=== PATIENT | female | born 2000 | race African-American/Black ===

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

== ENCOUNTER 2021-01-18 09:56 | Emergency (ER) | payer OTHER ==
--- OUTSIDE RECORDS SUMMARY | 2021-01-18 09:59 | XMS REPORT | Continuity of Care Document ---
:2000 Author Organization [facility] t Address [address] [place] [address] Care Team Providers Name Role Phone Unavailable Unavailable Unavailable Problems This patient has no known problems. Allergies, Adverse Reactions, Alerts Allergy Allergy Status Severity Reaction(s) Onset Inactive Treating Comm ents Source Name Type Date Date Clinician No Known DA Active U [facility] Drug 2 Allergie 00:00: s 00 Medications This patient has no known medications. Vital Signs Vital Name Observation Time Observation Value Comments Source 02 Sat by Pulse Oximetry 2020-08-30 16:49:36 100 /min Body Mass Index 2020-08-30 16:49:36 21.1 Height 2020-08-30 16:49:36 185.42\S\73 Pulse Rate 2020-08-30 16:49:36 70 /min Respiratory Rate 2020-08-30 16:49:36 17 /min Temperature 2020-08-30 16:49:36 37.0\S\98.6 Weight 2020-08-30 16:49:36 30096.779\S\2560 02 Sat by Pulse Oximetry 2020-08-30 16:24:28 100 /min Body Mass Index 2020-08-30 16:24:28 21.1 Height 2020-08-30 16:24:28 185.42\S\73 Pulse Rate 2020-08-30 16:24:28 70 /min Respiratory Rate 2020-08-30 16:24:28 17 /min Temperature 2020-08-30 16:24:28 37.0\S\98.6 Weight 2020-08-30 16:24:28 82190.779\S\2560 02 Sat by Pulse Oximetry 2020-08-30 16:23:57 100 /min Body Mass Index 2020-08-30 16:23:57 21.1 Height 2020-08-30 16:23:57 185.42\S\73 Pulse Rate 2020-08-30 16:23:57 70 /min Respiratory Rate 2020-08-30 16:23:57 17 /min Temperature 2020-08-30 16:23:57 37.0\S\98.6 Weight 2020-08-30 16:23:57 79580.779\S\2560 02 Sat by Pulse Oximetry 2020-08-30 16:23:26 100 /min Body Mass Index 2020-08-30 16:23:26 21.1 Height 2020-08-30 16:23:26 185.42\S\73 Pulse Rate 2020-08-30 16:23:26 70 /min Respiratory Rate 2020-08-30 16:23:26 17 /min Temperature 2020-08-30 16:23:26 37.0\S\98.6 Weight 2020-08-30 16:23:26 79940.779\S\2560 02 Sat by Pulse Oximetry 2020-08-30 16:02:24 100 /min Body Mass Index 2020-08-30 16:02:24 21.1 Height 2020-08-30 16:02:24 185.42\S\73 Pulse Rate 2020-08-30 16:02:24 76 /min Respiratory Rate 2020-08-30 16:02:24 20 /min Temperature 2020-08-30 16:02:24 97.6\S\207.7 Weight 2020-08-30 16:02:24 33494.779\S\2560 02 Sat by Pulse Oximetry 2020-08-30 15:57:47 100 /min Body Mass Index 2020-08-30 15:57:47 21.1 Height 2020-08-30 15:57:47 185.42\S\73 Pulse Rate 2020-08-30 15:57:47 76 /min Respiratory Rate 2020-08-30 15:57:47 20 /min Temperature 2020-08-30 15:57:47 97.6\S\207.7 Weight 2020-08-30 15:57:47 60414.779\S\2560 02 Sat by Pulse Oximetry 2020-08-30 15:01:57 100 /min Body Mass Index 2020-08-30 15:01:57 21.1 Height 2020-08-30 15:01:57 185.42\S\73 Pulse Rate 2020-08-30 15:01:57 68 /min Respiratory Rate 2020-08-30 15:01:57 18 /min Temperature 2020-08-30 15:01:57 36.5\S\97.7 Weight 2020-08-30 15:01:57 81736.779\S\2560 02 Sat by Pulse Oximetry 2020-08-30 13:45:28 100 /min Body Mass Index 2020-08-30 13:45:28 21.1 Height 2020-08-30 13:45:28 185.42\S\73 Pulse Rate 2020-08-30 13:45:28 68 /min Respiratory Rate 2020-08-30 13:45:28 18 /min Temperature 2020-08-30 13:45:28 36.5\S\97.7 Weight 2020-08-30 13:45:28 32064.779\S\2560 Height 2020-08-30 13:33:11 185.42\S\73 Pulse Rate 2020-08-30 13:33:11 68 /min Respiratory Rate 2020-08-30 13:33:11 18 /min Temperature 2020-08-30 13:33:11 36.5\S\97.7 Weight 2020-08-30 13:33:11 46899.779\S\2560 02 Sat by Pulse Oximetry 2020-08-30 13:33:10 100 /min Body Mass Index 2020-08-30 13:33:10 21.1 02 Sat by Pulse Oximetry 2020-08-30 12:18:45 100 /min Body Mass Index 2020-08-30 12:18:45 21.1 Height 2020-08-30 12:18:45 185.42\S\73 Pulse Rate 2020-08-30 12:18:45 68 /min Respiratory Rate 2020-08-30 12:18:45 18 /min Temperature 2020-08-30 12:18:45 36.5\S\97.7 Weight 2020-08-30 12:18:45 73993.779\S\2560 02 Sat by Pulse Oximetry 2020-08-30 11:29:51 100 /min Body Mass Index 2020-08-30 11:29:51 21.1 Height 2020-08-30 11:29:51 185.42\S\73 Pulse Rate 2020-08-30 11:29:51 68 /min Respiratory Rate 2020-08-30 11:29:51 18 /min Temperature 2020-08-30 11:29:51 36.5\S\97.7 Weight 2020-08-30 11:29:51 24280.779\S\2560 02 Sat by Pulse Oximetry 2020-08-30 11:15:27 100 /min Body Mass Index 2020-08-30 11:15:27 21.1 Height 2020-08-30 11:15:27 185.42\S\73 Pulse Rate 2020-08-30 11:15:27 68 /min Respiratory Rate 2020-08-30 11:15:27 18 /min Temperature 2020-08-30 11:15:27 36.5\S\97.7 Weight 2020-08-30 11:15:27 28904.779\S\2560 02 Sat by Pulse Oximetry 2020-08-30 11:13:55 100 /min Body Mass Index 2020-08-30 11:13:55 21.1 Height 2020-08-30 11:13:55 185.42\S\73 Pulse Rate 2020-08-30 11:13:55 68 /min Respiratory Rate 2020-08-30 11:13:55 18 /min Temperature 2020-08-30 11:13:55 36.5\S\97.7 Weight 2020-08-30 11:13:55 93455.779\S\2560 02 Sat by Pulse Oximetry 2020-08-30 11:09:18 100 /min Body Mass Index 2020-08-30 11:09:18 21.1 Height 2020-08-30 11:09:18 185.42\S\73 Pulse Rate 2020-08-30 11:09:18 68 /min Respiratory Rate 2020-08-30 11:09:18 18 /min Temperature 2020-08-30 11:09:18 36.5\S\97.7 Weight 2020-08-30 11:09:18 43029.779\S\2560 02 Sat by Pulse Oximetry 2020-08-30 11:07:46 100 /min Body Mass Index 2020-08-30 11:07:46 21.1 Height 2020-08-30 11:07:46 185.42\S\73 Pulse Rate 2020-08-30 11:07:46 68 /min Respiratory Rate 2020-08-30 11:07:46 18 /min Temperature 2020-08-30 11:07:46 36.5\S\97.7 Weight 2020-08-30 11:07:46 27738.779\S\2560 02 Sat by Pulse Oximetry 2020-08-30 11:06:45 100 /min Body Mass Index 2020-08-30 11:06:45 21.1 Height 2020-08-30 11:06:45 185.42\S\73 Pulse Rate 2020-08-30 11:06:45 68 /min Respiratory Rate 2020-08-30 11:06:45 18 /min Temperature 2020-08-30 11:06:45 36.5\S\97.7 Weight 2020-08-30 11:06:45 96414.779\S\2560 02 Sat by Pulse Oximetry 2020-08-30 11:06:14 100 /min Body Mass Index 2020-08-30 11:06:14 21.1 Height 2020-08-30 11:06:14 185.42\S\73 Pulse Rate 2020-08-30 11:06:14 68 /min Respiratory Rate 2020-08-30 11:06:14 18 /min Temperature 2020-08-30 11:06:14 36.5\S\97.7 Weight 2020-08-30 11:06:14 58544.779\S\2560 02 Sat by Pulse Oximetry 2020-08-30 11:04:10 100 /min Body Mass Index 2020-08-30 11:04:10 21.1 Height 2020-08-30 11:04:10 185.42\S\73 Pulse Rate 2020-08-30 11:04:10 68 /min Respiratory Rate 2020-08-30 11:04:10 18 /min Temperature 2020-08-30 11:04:10 36.5\S\97.7 Weight 2020-08-30 11:04:10 19886.779\S\2560 WEIGHT 2020-08-30 11:01:00 72.401012 kg HEIGHT 2020-08-30 11:01:00 185.42 cm Procedures This patient has no known procedures. Results This patient has no known results.
[2021-01-18 10:59] LABS: Urine Blood 1+ (Negative); Urine Glucose Negative (Negative); Urine Protein 1+ (Negative); Urine Specific Gravity >=1.030 (1.005-1.030); Urine pH 6.5 (5.0-7.0)
[2021-01-18] MEDS ORDERED: NA CHLORIDE 0.9% 1,000 ML ONE (11:47)
[2021-01-18] MEDS ORDERED: FAMOTIDINE 20 MG/2 ML VIAL IV ONE (11:48)
[2021-01-18 11:54] LABS: Absolute Lymphocytes (CBC) 1.5 K/uL (0.7-4.9); Basophils % 0.7 % (0-1.3); Hematocrit 38.6 % (36.0-45.0); Lymphocytes % 35.1 % (15.3-44.8); MPV 8.7 fL (7.6-11.3); RBC Red Blood Cell Count 4.22 M/uL (3.86-4.86)
--- NOTE | 2021-01-18 12:10 | RAD REPORT ---
EXAM DESCRIPTION: CT - Abdomen Pelvis W Contrast - 01/18/2021 11:56 am CLINICAL HISTORY: Upper abd;Abd pain COMPARISON: <Comparisons> TECHNIQUE: Biphasic, helical CT imaging of the abdomen and pelvis was performed following 100 ml non -ionic IV contrast. No oral contrast administered. All CT scans are performed using dose optimization technique as appropriate and may include automated exposure control or mA/KV adjustment according to patient size. FINDINGS: No suspicious findings in the lung bases. The liver, spleen, and pancreas show no suspicious findings. Gallbladder and biliary tree are also wi thout suspicious finding. Symmetric renal function is seen with no hydronephrosis or suspicious renal mass. No pyelonephritis o r acute parenchymal process. No bladder abnormalities. No adrenal abnormalities. Right deviated uterus shows no abnormality. No right ovarian abnormality seen. Left ovary appears to contain a 2.4 centimeter partially involuted cyst. Physiologic quantity of free fluid is seen adjacen t to the ovary and in the cul de sac. These findings are not likely significant given the history of left upper pain. No dilated bowel loops or bowel wall thickening. No appendicitis findings. Patient has moderate stool volume filling but not dilating the colon. No colon wall thickening or mass. No free air, pneumatosi s or abnormal free fluid collection. No focal inflammatory stranding seen. No hernia, mass or bulky lymphadenopathy. No suspicious bony findings. IMPRESSION: Contrast enhanced CT abdomen and pelvis showing no acute or emergent finding. Patient has a partially collapsed or involuting left ovarian cyst approximately 2.4 cm in size with a djacent free fluid. This is not outside normal range and is probably not relevant for a patient with provided history of left upper abdominal pain. Stool volume is seen filling but not dilating the colon.
[2021-01-18 12:53] LABS: Albumin 3.6 g/dL (3.4-5.0); Bilirubin Direct 0.1 mg/dL (0-0.2); Bilirubin Total 0.4 mg/dL (0.2-1.0); Potassium 4.2 mmol/L (3.5-5.1); Protein, Total 8.4 g/dL (6.4-8.2)
--- NOTE | 2021-01-18 12:57 | ER ---
Nurse's Notes [facility] [place] Name: Trisha Carreon Age: 20 yrs Sex: Female : 2000 Arrival Date: 01/18/2021 Time: 09:58 Bed 13 Private MD: Diagnosis: Lower abdominal pain, unspecified;Other and unspecified ovarian cysts Presentation: 01/18 10:24 Chief complaint: Patient states: Epigastric, BELLAMY and sore throat x 1.5 weeks, denies jl7 fever, denies N/V/D. Coronavirus screen: Client denies travel out of the [place] in the last 14 days. headache, sore throat, Client presents with at least one sign or symptom that may indicate coronavirus-19. Standard/surgical mask placed on the client. Provider contacted for isolation considerations. Ebola Screen: No symptoms or risks identified at this time. Initial Sepsis Screen: Does the patient meet any 2 criteria? No. Patient's initial sepsis screen is negative. Does the patient have a suspected source of infection? No. Patient's initial sepsis screen is negative. Risk Assessment: Do you want to hurt yourself or someone else? Patient reports no desire to harm self or others. Onset of symptoms was January 09, 2021. 10:24 Method Of Arrival: Ambulatory 7 10:24 Acuity: ROSSY 3 jl7 Triage Assessment: 10:27 General: Appears in no apparent distress. uncomfortable, Behavior is calm, cooperative. jl7 Pain: Complains of pain in bellamy, epigastric pain Pain currently is 9 out of 10 on a pain scale. GI: Patient currently denies diarrhea, nausea, vomiting. 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 - Social history:: Smoking status: Patient denies any tobacco usage or history of. Screenin:38 Abuse screen: Denies threats or abuse. Nutritional screening: No deficits noted. ap3 Tuberculosis screening: No symptoms or risk factors identified. Fall Risk None identified. Assessment: 10:36 General: Appears comfortable, Behavior is calm, cooperative, drowsy. Pain: Complains of ap3 pain in abdomen Pain does not radiate. Pain currently is 9 out of 10 on a pain scale. Pain began gradually, 2 weeks ago Also complains of headach. Neuro: Level of Consciousness is awake, alert, obeys commands, Oriented to person, place, time, situation, Appropriate for age Moves all extremities. Gait is steady, Speech is normal, Facial symmetry appears normal, Reports headache since 2 weeks ago Denies dizziness. Cardiovascular: Capillary refill < 3 seconds. Respiratory: Airway is patent Respiratory effort is even, unlabored, Respiratory pattern is regular, symmetrical. Respiratory: Reports cough that is dry, Denies shortness of breath. GI: Bowel sounds present X 4 quads. Abd is soft and non tender X 4 quads. : No signs and/or symptoms were reported regarding the genitourinary system. EENT: No signs and/or symptoms were reported regarding the EENT system. Denies nasal congestion, nasal discharge. Derm: No signs and/or symptoms reported regarding the dermatologic system. 10:38 Reassessment: patient provided with specimen cup and education in providing clean catch ap3 urine. patient verbalized understanding. Vital Signs: 10:27 BP 107 / 77; Pulse 87; Resp 19; Temp 99; Pulse Ox 100% ; Pain 9/10; jl7 11:31 BP 112 / 79; Pulse 69; Resp 17; Pulse Ox 100% on R/A; Pain 0/10; ap3 12:35 BP 110 / 73 RA Sitting (auto/reg); Pulse 74; Resp 18; Pulse Ox 100% on R/A; Pain 3/10; ap3 ED Course: 09:58 Patient arrived in ED. as 10:07 Emmanuel Guerrero MD is Attending Physician. kdr 10:27 Triage completed. jl7 10:27 Arm band placed on right wrist. jl7 10:35 Luci Donato, AIDEN is Primary Nurse. ap3 10:38 Patient has correct armband on for positive identification. Bed in low position. Call ap3 light in reach. Side rails up X2. Pulse ox on. NIBP on. Door closed. Noise minimized. 11:30 Inserted saline lock: 20 gauge in right antecubital area, using aseptic technique. ap3 Blood collected. successfully inserted by student nurse. 11:[address] via wheelchair. ap3 11:56 CT Abd/Pelvis - IV Contrast Only In Process Unspecified. EDMS 12:35 Pt visited by Friend. ap3 12:57 No provider procedures requiring assistance completed. ap3 12:59 ED physician to see patient. ap3 13:09 IV discontinued, intact, bleeding controlled, No redness/swelling at site. Pressure ap3 dressing applied. Administered Medications: 12:07 Drug: NS 0.9% 500 ml Route: IV; Rate: bolus; Site: right antecubital; ap3 13:10 Follow up: IV Status: Completed infusion; IV Intake: 1000ml ap3 12:07 Drug: Pepcid (famotidine) 20 mg Route: IVP; Site: right antecubital; ap3 13:10 Follow up: Response: No adverse reaction ap3 Intake: 13:10 IV: 1000ml; Total: 1000ml. ap3 Outcome: 12:56 Discharge ordered by . kdr 13:09 Discharged to home ambulatory, with family. ap3 13:09 Condition: good 13:09 Discharge instructions given to patient, family, Instructed on discharge instructions, follow up and referral plans. medication usage, Demonstrated understanding of instructions, follow-up care, medications, Prescriptions given X 1. 13:09 Patient left the ED. ap3 Signatures: Dispatcher [employer] EDMS Emmanuel Guerrero MD MD kdr Martinez, Amelia as Leal, Jahala, RN RN jl7 Luci Donato RN RN ap3
--- NOTE | 2021-01-18 12:57 | EDPHYS ---
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 - Social history:: Smoking status: Patient denies any tobacco usage or history of. Vital Signs: 10:27 BP 107 / 77; Pulse 87; Resp 19; Temp 99; Pulse Ox 100% ; Pain 9/10; jl7 11:31 BP 112 / 79; Pulse 69; Resp 17; Pulse Ox 100% on R/A; Pain 0/10; ap3 12:35 BP 110 / 73 RA Sitting (auto/reg); Pulse 74; Resp 18; Pulse Ox 100% on R/A; Pain 3/10; ap3 MDM: 12:56 Patient medically screened. [facility] 01/18 10:59 Order name: Urine Dipstick-Ancillary; Complete Time: 12:55 [facility] 01/18 11:21 Order name: Basic Metabolic Panel; Complete Time: 12:55 [facility] 01/18 11:21 Order name: CBC with Diff; Complete Time: 12:55 [facility] 01/18 11:21 Order name: Hepatic Function; Complete Time: 12:55 [facility] 01/18 11:21 Order name: Lipase; Complete Time: 12:55 [facility] 01/18 12:39 Order name: CREATININE WHOLE BLOOD; Complete Time: 12:55 [facility] 01/18 11:21 Order name: IV Saline Lock; Complete Time: 11:46 [facility] 01/18 11:21 Order name: Labs collected and sent; Complete Time: 11:46 [facility] 01/18 11:21 Order name: CT Abd/Pelvis - IV Contrast Only; Complete Time: 12:55 kdr Administered Medications: 12:07 Drug: NS 0.9% 500 ml Route: IV; Rate: bolus; Site: right antecubital; ap3 13:10 Follow up: IV Status: Completed infusion; IV Intake: 1000ml ap3 12:07 Drug: Pepcid (famotidine) 20 mg Route: IVP; Site: right antecubital; ap3 13:10 Follow up: Response: No adverse reaction ap3 Disposition Summary: 01/18/21 12:56 Discharge Ordered Location: Home kdr Problem: new kdr Symptoms: have improved kdr Condition: Stable kdr Diagnosis - Lower abdominal pain, unspecified kdr - Other and unspecified ovarian cysts kdr Followup: kdr - With: Private Physician - When: 2 - 3 days - Reason: If symptoms return, Further diagnostic work-up, Recheck today's complaints, Continuance of care, Re-evaluation by your physician Discharge Instructions: - Discharge Summary Sheet kdr - Abdominal Pain, Adult kdr - Ovarian Cyst, [id number] kdr Forms: - Medication Reconciliation Form kdr - Thank You Letter kdr - Work release form ap3 Prescriptions: - Ibuprofen 600 mg Oral Tablet - take 1 tablet by ORAL route every 6 hours As needed take with food; 30 tablet; kdr Refills: 0, Product Selection Permitted Signatures: Dispatcher [employer] Emmanuel Flores MD MD kdr Guille Kilpatrick RN RN jl7 Luci Donato RN RN ap3
[2021-01-18 13:16] VITALS: TEMP 99; O2SAT 100
[2021-01-18 13:20] VITALS: BP 110/73
== END 2021-01-18 13:09 | disposition home or self-care (01) ==
LOC: ER 09:56
DX: N83.299 Other ovarian cyst, unspecified side (principal)
CPT/HCPCS: 96361; 85025; 80048; 36415; 82565; 80076; 81003; 83690; 74177; 96374; 99284; Q9967; J7030

== ENCOUNTER 2022-01-06 20:51 | Emergency (ER) | payer OTHER ==
[2022-01-06] MEDS ORDERED: LORAZEPAM 1 MG TABLET ONE (21:44)
--- NOTE | 2022-01-06 22:18 | ER ---
Nurse's Notes [facility] Name: Trisha Carreon Age: 21 yrs Sex: Female : 2000 Arrival Date: 01/06/2022 Time: 20:54 Bed 17 Private MD: Diagnosis: Anxiety disorder, unspecified Presentation: 01/06 21:09 Chief complaint: Patient states: "Anxiety attack." Parent and/or Guardian states: "They tw5 usually last her about 30 min to an hour.". Coronavirus screen: Vaccine status: Patient reports receiving the 2nd dose of the covid vaccine. [employer]. Ebola Screen: Patient negative for fever greater than or equal to 101.5 degrees Fahrenheit, and additional compatible Ebola Virus Disease symptoms Patient denies exposure to infectious person. Patient denies travel to an Ebola-affected area in the 21 days before illness onset. Initial Sepsis Screen: Does the patient meet any 2 criteria? No. Patient's initial sepsis screen is negative. Does the patient have a suspected source of infection? No. Patient's initial sepsis screen is negative. Risk Assessment: Do you want to hurt yourself or someone else? Patient reports no desire to harm self or others. Onset of symptoms was January 06, 2022 at 19:00. 21:09 Method Of Arrival: Ambulatory tw5 21:09 Acuity: ROSSY 4 tw5 Triage Assessment: 21:11 General: Appears uncomfortable, obese, Behavior is cooperative, appropriate for age, tw5 anxious. Pain: Denies pain. 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 - Social history:: Smoking status: Patient reports the use of cigarette tobacco products, smokes one pack cigarettes per day. Vital Signs: 21:09 BP 122 / 93; Pulse 78; Resp 14; Temp 98.1; Pulse Ox 94% on R/A; Weight 104.33 kg; tw5 Height 6 ft. 0 in. (182.88 cm); Pain 0/10; 21:09 Body Mass Index 31.19 (104.33 kg, 182.88 cm) tw5 ED Course: 20:54 Patient arrived in ED. am2 21:11 Triage completed. tw5 21:11 Arm band placed on. 5 21:18 Lenny Hoffman PA is PHCP. [facility] 21:18 David Flowers MD is Attending Physician. [facility] 21:19 Rao Vizcaino, RN is Primary Nurse. 3 21:23 Patient has correct armband on for positive identification. Bed in low position. Call [facility] light in reach. Side rails up X 1. Adult w/ patient. Pulse ox on. NIBP on. Administered Medications: 21:43 Drug: Ativan (LORazepam) 1 mg Route: PO; ll3 Outcome: 22:18 Discharge ordered by . [facility] 23:04 Patient left the ED. tw5 Signatures: Lenny Hoffman PA PA jmm Martinez, Maria 5 Luci Haddad am2 Alexandra Johnson 5 Rao Vizcaino, RN RN 3
--- NOTE | 2022-01-06 22:18 | EDPHYS ---
Physician Documentation [facility] Name: Trisha Carreon Age: 21 yrs Sex: Female : 2000 Arrival Date: 01/06/2022 Time: 20:54 Bed 17 Private MD: ED Physician David Flowers HPI: 01/06 22:16 This 21 yrs old Black Female presents to ER via Ambulatory with complaints of Psych jmm Problem. 22:16 The patient presents to the emergency department with anxiety. Onset: The jmm symptoms/episode began/occurred acutely, today. Associated signs and symptoms: Pertinent negatives: abdominal pain, homicidal ideation, substance abuse, suicide ideation. The patient has experienced similar episodes in the past. 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 - Social history:: Smoking status: Patient reports the use of cigarette tobacco products, smokes one pack cigarettes per day. ROS: 22:16 Constitutional: Negative for fever, chills, and weight loss, Cardiovascular: Negative jmm for chest pain, palpitations, and edema, Respiratory: Negative for shortness of breath, cough, wheezing, and pleuritic chest pain. 22:16 Psych: Positive for anxiety. 22:16 All other systems are negative. Exam: 22:16 Constitutional: This is a well developed, well nourished patient who is awake, alert, jmm and in no acute distress. Head/Face: atraumatic. Eyes: EOMI, no conjunctival erythema appreciated ENT: Moist Mucus Membranes Neck: Trachea midline, Supple Chest/axilla: Normal chest wall appearance and motion. Cardiovascular: Regular rate and rhythm. No edema appreciated Respiratory: Normal respirations, no respiratory distress appreciated Abdomen/GI: Non distended Back: Normal ROM Skin: General appearance color normal MS/ Extremity: Moves all extremities, no obvious deformities appreciated, no edema noted to the lower extremities Neuro: Awake and alert 22:16 Psych: Behavior/mood is pleasant, cooperative, anxious, Patient has no thoughts/intents to harm self or others. Vital Signs: 21:09 BP 122 / 93; Pulse 78; Resp 14; Temp 98.1; Pulse Ox 94% on R/A; Weight 104.33 kg; tw5 Height 6 ft. 0 in. (182.88 cm); Pain 0/10; 21:09 Body Mass Index 31.19 (104.33 kg, 182.88 cm) tw5 MDM: 21:20 Patient medically screened. [facility] 22:16 Data reviewed: vital signs, nurses notes. Counseling: I had a detailed discussion with collette the patient and/or guardian regarding: the historical points, exam findings, and any diagnostic results supporting the discharge/admit diagnosis, the need for outpatient follow up, to return to the emergency department if symptoms worsen or persist or if there are any questions or concerns that arise at home. Administered Medications: 21:43 Drug: Ativan (LORazepam) 1 mg Route: PO; ll3 Disposition Summary: 01/06/22 22:18 Discharge Ordered Location: Home [facility] Condition: Stable [facility] Diagnosis - Anxiety disorder, unspecified [facility] Followup: [facility] - With: Private Physician - When: 2 - 3 days - Reason: Recheck today's complaints, Continuance of care, Re-evaluation by your physician Discharge Instructions: - Discharge Summary Sheet [facility] - Panic Attack [facility] Forms: - Medication Reconciliation Form [facility] - Thank You Letter [facility] - Antibiotic Education [facility] - Prescription Opioid Use [facility] Prescriptions: - Hydroxyzine HCl 25 mg Oral Tablet - take 1 tablet by ORAL route every 6 hours As needed; 30 tablet; Refills: 0, [facility] Product Selection Permitted Signatures: David Flowers MD MD cha Mickail, Joel, PA PA jmm Wood, Tiffany tw5 Rao Vizcaino RN RN ll3
[2022-01-06 23:15] VITALS: BP 122/93; TEMP 98.1; O2SAT 94
== END 2022-01-06 23:04 | disposition home or self-care (01) ==
LOC: ER 20:51
DX: F41.9 Anxiety disorder, unspecified (principal); F90.9 Attention-deficit hyperactivity disorder, unspecified type; F17.210 Nicotine dependence, cigarettes, uncomplicated
CPT/HCPCS: 99283

== ENCOUNTER 2022-11-14 08:54 | Emergency (ER) | payer OTHER ==
--- OUTSIDE RECORDS SUMMARY | 2022-11-14 08:58 | XMS REPORT | Continuity of Care Document ---
:2000 Author Organization [facility] t Address [address] [place] [address] Care Team Providers Name Role Phone Unavailable Unavailable Unavailable Payers Payer Name Policy Type Policy Number Effective Date Expiration Date S ource Problems This patient has no known problems. Allergies, Adverse Reactions, Alerts Allergy Allergy Status Severity Reaction(s) Onset Inactive Treating Comm ents Source Name Type Date Date Clinician No Known DA Active U [facility] Drug 08-30 Allergie 00:00: s 00 Medications This patient has no known medications. Vital Signs Vital Name Observation Time Observation Value Comments Source 02 Sat by Pulse Oximetry 2020-08-30 16:49:36 100 /min Body Mass Index 2020-08-30 16:49:36 21.1 Height 2020-08-30 16:49:36 185.42\S\73 Pulse Rate 2020-08-30 16:49:36 70 /min Respiratory Rate 2020-08-30 16:49:36 17 /min Temperature 2020-08-30 16:49:36 37.0\S\98.6 Weight 2020-08-30 16:49:36 17491.779\S\2560 02 Sat by Pulse Oximetry 2020-08-30 16:24:28 100 /min Body Mass Index 2020-08-30 16:24:28 21.1 Height 2020-08-30 16:24:28 185.42\S\73 Pulse Rate 2020-08-30 16:24:28 70 /min Respiratory Rate 2020-08-30 16:24:28 17 /min Temperature 2020-08-30 16:24:28 37.0\S\98.6 Weight 2020-08-30 16:24:28 40493.779\S\2560 02 Sat by Pulse Oximetry 2020-08-30 16:23:57 100 /min Body Mass Index 2020-08-30 16:23:57 21.1 Height 2020-08-30 16:23:57 185.42\S\73 Pulse Rate 2020-08-30 16:23:57 70 /min Respiratory Rate 2020-08-30 16:23:57 17 /min Temperature 2020-08-30 16:23:57 37.0\S\98.6 Weight 2020-08-30 16:23:57 01573.779\S\2560 02 Sat by Pulse Oximetry 2020-08-30 16:23:26 100 /min Body Mass Index 2020-08-30 16:23:26 21.1 Height 2020-08-30 16:23:26 185.42\S\73 Pulse Rate 2020-08-30 16:23:26 70 /min Respiratory Rate 2020-08-30 16:23:26 17 /min Temperature 2020-08-30 16:23:26 37.0\S\98.6 Weight 2020-08-30 16:23:26 67189.779\S\2560 02 Sat by Pulse Oximetry 2020-08-30 16:02:24 100 /min Body Mass Index 2020-08-30 16:02:24 21.1 Height 2020-08-30 16:02:24 185.42\S\73 Pulse Rate 2020-08-30 16:02:24 76 /min Respiratory Rate 2020-08-30 16:02:24 20 /min Temperature 2020-08-30 16:02:24 97.6\S\207.7 Weight 2020-08-30 16:02:24 84404.779\S\2560 02 Sat by Pulse Oximetry 2020-08-30 15:57:47 100 /min Body Mass Index 2020-08-30 15:57:47 21.1 Height 2020-08-30 15:57:47 185.42\S\73 Pulse Rate 2020-08-30 15:57:47 76 /min Respiratory Rate 2020-08-30 15:57:47 20 /min Temperature 2020-08-30 15:57:47 97.6\S\207.7 Weight 2020-08-30 15:57:47 36782.779\S\2560 02 Sat by Pulse Oximetry 2020-08-30 15:01:57 100 /min Body Mass Index 2020-08-30 15:01:57 21.1 Height 2020-08-30 15:01:57 185.42\S\73 Pulse Rate 2020-08-30 15:01:57 68 /min Respiratory Rate 2020-08-30 15:01:57 18 /min Temperature 2020-08-30 15:01:57 36.5\S\97.7 Weight 2020-08-30 15:01:57 65940.779\S\2560 02 Sat by Pulse Oximetry 2020-08-30 13:45:28 100 /min Body Mass Index 2020-08-30 13:45:28 21.1 Height 2020-08-30 13:45:28 185.42\S\73 Pulse Rate 2020-08-30 13:45:28 68 /min Respiratory Rate 2020-08-30 13:45:28 18 /min Temperature 2020-08-30 13:45:28 36.5\S\97.7 Weight 2020-08-30 13:45:28 08214.779\S\2560 Height 2020-08-30 13:33:11 185.42\S\73 Pulse Rate 2020-08-30 13:33:11 68 /min Respiratory Rate 2020-08-30 13:33:11 18 /min Temperature 2020-08-30 13:33:11 36.5\S\97.7 Weight 2020-08-30 13:33:11 84131.779\S\2560 02 Sat by Pulse Oximetry 2020-08-30 13:33:10 100 /min Body Mass Index 2020-08-30 13:33:10 21.1 02 Sat by Pulse Oximetry 2020-08-30 12:18:45 100 /min Body Mass Index 2020-08-30 12:18:45 21.1 Height 2020-08-30 12:18:45 185.42\S\73 Pulse Rate 2020-08-30 12:18:45 68 /min Respiratory Rate 2020-08-30 12:18:45 18 /min Temperature 2020-08-30 12:18:45 36.5\S\97.7 Weight 2020-08-30 12:18:45 49715.779\S\2560 02 Sat by Pulse Oximetry 2020-08-30 11:29:51 100 /min Body Mass Index 2020-08-30 11:29:51 21.1 Height 2020-08-30 11:29:51 185.42\S\73 Pulse Rate 2020-08-30 11:29:51 68 /min Respiratory Rate 2020-08-30 11:29:51 18 /min Temperature 2020-08-30 11:29:51 36.5\S\97.7 Weight 2020-08-30 11:29:51 63613.779\S\2560 02 Sat by Pulse Oximetry 2020-08-30 11:15:27 100 /min Body Mass Index 2020-08-30 11:15:27 21.1 Height 2020-08-30 11:15:27 185.42\S\73 Pulse Rate 2020-08-30 11:15:27 68 /min Respiratory Rate 2020-08-30 11:15:27 18 /min Temperature 2020-08-30 11:15:27 36.5\S\97.7 Weight 2020-08-30 11:15:27 20294.779\S\2560 02 Sat by Pulse Oximetry 2020-08-30 11:13:55 100 /min Body Mass Index 2020-08-30 11:13:55 21.1 Height 2020-08-30 11:13:55 185.42\S\73 Pulse Rate 2020-08-30 11:13:55 68 /min Respiratory Rate 2020-08-30 11:13:55 18 /min Temperature 2020-08-30 11:13:55 36.5\S\97.7 Weight 2020-08-30 11:13:55 38373.779\S\2560 02 Sat by Pulse Oximetry 2020-08-30 11:09:18 100 /min Body Mass Index 2020-08-30 11:09:18 21.1 Height 2020-08-30 11:09:18 185.42\S\73 Pulse Rate 2020-08-30 11:09:18 68 /min Respiratory Rate 2020-08-30 11:09:18 18 /min Temperature 2020-08-30 11:09:18 36.5\S\97.7 Weight 2020-08-30 11:09:18 86330.779\S\2560 02 Sat by Pulse Oximetry 2020-08-30 11:07:46 100 /min Body Mass Index 2020-08-30 11:07:46 21.1 Height 2020-08-30 11:07:46 185.42\S\73 Pulse Rate 2020-08-30 11:07:46 68 /min Respiratory Rate 2020-08-30 11:07:46 18 /min Temperature 2020-08-30 11:07:46 36.5\S\97.7 Weight 2020-08-30 11:07:46 97988.779\S\2560 02 Sat by Pulse Oximetry 2020-08-30 11:06:45 100 /min Body Mass Index 2020-08-30 11:06:45 21.1 Height 2020-08-30 11:06:45 185.42\S\73 Pulse Rate 2020-08-30 11:06:45 68 /min Respiratory Rate 2020-08-30 11:06:45 18 /min Temperature 2020-08-30 11:06:45 36.5\S\97.7 Weight 2020-08-30 11:06:45 42889.779\S\2560 02 Sat by Pulse Oximetry 2020-08-30 11:06:14 100 /min Body Mass Index 2020-08-30 11:06:14 21.1 Height 2020-08-30 11:06:14 185.42\S\73 Pulse Rate 2020-08-30 11:06:14 68 /min Respiratory Rate 2020-08-30 11:06:14 18 /min Temperature 2020-08-30 11:06:14 36.5\S\97.7 Weight 2020-08-30 11:06:14 82704.779\S\2560 02 Sat by Pulse Oximetry 2020-08-30 11:04:10 100 /min Body Mass Index 2020-08-30 11:04:10 21.1 Height 2020-08-30 11:04:10 185.42\S\73 Pulse Rate 2020-08-30 11:04:10 68 /min Respiratory Rate 2020-08-30 11:04:10 18 /min Temperature 2020-08-30 11:04:10 36.5\S\97.7 Weight 2020-08-30 11:04:10 08232.779\S\2560 WEIGHT 2020-08-30 11:01:00 72.453251 kg HEIGHT 2020-08-30 11:01:00 185.42 cm Procedures This patient has no known procedures. Encounters Start End Encounter Admission Attending Care Care Encounter Source Date/Time Date/Time Type Type Clinicians Facility Department ID 2020-08-30 Inpatient [facility] [id number] [facility] 10:59:00 64 Results This patient has no known results.
[2022-11-14 11:42] LABS: Specific Gravity 1.027 (1.005-1.030)
--- NOTE | 2022-11-14 11:52 | EDPHYS ---
Physician Documentation [facility] Name: Trisha Carreon Age: 21 yrs Sex: Female : 2000 Arrival Date: 11/14/2022 Time: 08:54 Bed 19 Private MD: ED Physician Paul Shanks HPI: 11/14 09:08 This 21 yrs old Black Female presents to ER via Ambulatory with complaints of Lips jmm Swelling. 09:08 Onset: The symptoms/episode began/occurred gradually, last night. Modifying factors: jmm The symptoms are alleviated by nothing, the symptoms are aggravated by nothing. Associated signs and symptoms: Pertinent positives: swelling. This is a 21 year old female with a history of add/adhd, anxiety, that presents to the ED with complants of lower lip swelling. Symptoms began last night. Denies trauma. Does not take william inhibitors. . Historical: - Allergies: 09:20 No Known Allergies; eh3 - PMHx: 09:20 ADD/ADHD; Anxiety; insomnia; eh3 - Immunization history:: Adult Immunizations up to date. - Social history:: Smoking status: Patient reports the use of cigarette tobacco products, denies chronic smoking, but will smoke occasionally, Patient uses alcohol, occasionally. ROS: 09:08 Constitutional: Negative for fever, chills, and weight loss, Cardiovascular: Negative jmm for chest pain, palpitations, and edema, Respiratory: Negative for shortness of breath, cough, wheezing, and pleuritic chest pain. 09:08 ENT: Positive for lip swelling. 09:08 All other systems are negative. Exam: 09:08 Constitutional: This is a well developed, well nourished patient who is awake, alert, jmm and in no acute distress. Head/Face: atraumatic. Eyes: EOMI, no conjunctival erythema appreciated 09:08 Neck: Trachea midline, Supple Chest/axilla: Normal chest wall appearance and motion. Cardiovascular: Regular rate and rhythm. No edema appreciated Respiratory: Normal respirations, no respiratory distress appreciated Abdomen/GI: Non distended Back: Normal ROM Skin: General appearance color normal MS/ Extremity: Moves all extremities, no obvious deformities appreciated, no edema noted to the lower extremities Neuro: Awake and alert Psych: Behavior is normal, Mood is normal, Patient is cooperative and pleasant 09:08 ENT: Mouth: crusting lesions noted to the right side of the lower lip, edema is appreciated, no pharyngeal edema, airway normal. . Vital Signs: 09:20 BP 132 / 89; Pulse 101; Resp 18; Temp 99.9; Pulse Ox 98% on R/A; Weight 114.31 kg; eh3 Height 5 ft. 9 in. ; Pain 7/10; 10:30 BP 116 / 91; Pulse 76; Resp 18; Pulse Ox 98% on R/A; eh3 11:30 BP 111 / 83; Pulse 72; Resp 18; Temp 99.1(O); Pulse Ox 98% on R/A; eh3 09:20 Body Mass Index 37.21 (114.31 kg, 175.26 cm) [facility] 09:20 Pain Scale: Adult 3 MDM: 09:08 Patient medically screened. [facility] 15:47 Differential diagnosis: HSV, impetigo. Data reviewed: vital signs, nurses notes, lab [facility] test result(s). Counseling: I had a detailed discussion with the patient and/or guardian regarding: the historical points, exam findings, and any diagnostic results supporting the discharge/admit diagnosis, lab results, the need for outpatient follow up, to return to the emergency department if symptoms worsen or persist or if there are any questions or concerns that arise at home. 11/14 09:15 Order name: KERLINE; Complete Time: 11:54 [facility] Administered Medications: No medications were administered Disposition: 12:56 Co-signature as Attending Physician, Paul MONTERO was immediately available on-site ms3 in the Emergency Department for consultation in the care of the patient. Disposition Summary: 11/14/22 11:51 Discharge Ordered Location: Home [facility] Condition: Stable [facility] Diagnosis - Impetigo [facility] Followup: [facility] - With: Private Physician - When: 2 - 3 days - Reason: Recheck today's complaints, Continuance of care, Re-evaluation by your physician Discharge Instructions: - Discharge Summary Sheet [facility] - [place] [facility] - Impetigo, Adult [facility] Forms: - Medication Reconciliation Form [facility] - Thank You Letter [facility] - Antibiotic Education [facility] - Prescription Opioid Use [facility] Prescriptions: - valacyclovir 1 gram Oral tablet - take 1 tablet by ORAL route 3 times per day for 7 days; 21 tablet; Refills: 0, [facility] Product Selection Permitted - mupirocin 2 % Topical ointment - apply 1 application by TOPICAL route 2 times per day for 7 days; 1 unit; [place] Refills: 0, Product Selection Permitted - Augmentin 875-125 mg Oral Tablet - take 1 tablet by ORAL route every 12 hours for 10 days; 20 tablet; Refills: 0, [facility] Product Selection Permitted Signatures: Dispatcher [employer] Lenny Claros PA PA jmm Sims, Marcus, DO DO ms3 Marline Tilley RN RN eh3
--- NOTE | 2022-11-14 11:52 | ER ---
Nurse's Notes [facility] Name: Trisha Carreon Age: 21 yrs Sex: Female : 2000 Arrival Date: 11/14/2022 Time: 08:54 Bed 19 Private MD: Diagnosis: Impetigo Presentation: 11/14 09:20 Chief complaint: Patient states: lower lip swelling since yesterday morning, dry eh3 unproductive cough started last night, intermittent nausea since yesterday. Coronavirus screen: Vaccine status: Patient reports receiving the 2nd dose of the covid vaccine. Ebola Screen: No symptoms or risks identified at this time. Initial Sepsis Screen: Does the patient meet any 2 criteria? No. Patient's initial sepsis screen is negative. Does the patient have a suspected source of infection? No. Patient's initial sepsis screen is negative. Risk Assessment: Do you want to hurt yourself or someone else? Patient reports no desire to harm self or others. Onset of symptoms was November 13, 2022. 09:20 Method Of Arrival: Ambulatory 3 09:20 Acuity: ROSSY 3 eh3 Triage Assessment: 09:20 General: Appears in no apparent distress. uncomfortable, Behavior is calm, cooperative, eh3 appropriate for age. Pain: Complains of pain in mouth. EENT: lower lip swollen on right side. Neuro: Level of Consciousness is awake, alert, obeys commands, Oriented to person, place, time, situation. Cardiovascular: Capillary refill < 3 seconds Patient's skin is warm and dry. Respiratory: Reports cough that is non-productive, dry, Airway is patent Respiratory effort is even, unlabored, Respiratory pattern is regular, symmetrical. GI: Abdomen is round non-distended, Reports nausea. : No signs and/or symptoms were reported regarding the genitourinary system. Derm: Skin is intact, is healthy with good turgor. Musculoskeletal: Circulation, motion, and sensation intact. Range of motion: intact in all extremities. Historical: - Allergies: : No Known Allergies; eh3 - PMHx: :21 ADD/ADHD; Anxiety; insomnia; eh3 - Immunization history:: Adult Immunizations up to date. - Social history:: Smoking status: Patient reports the use of cigarette tobacco products, denies chronic smoking, but will smoke occasionally, Patient uses alcohol, occasionally. Screenin:31 [facility] ED Fall Risk Assessment (Adult) Score/Fall Risk Level 0 - 2 = Low Risk. Abuse eh3 screen: Denies threats or abuse. Denies injuries from another. Nutritional screening: No deficits noted. Tuberculosis screening: No symptoms or risk factors identified. Assessment: 09:31 Reassessment: No changes from previously documented assessment. See triage assessment. 3 09:32 Reassessment: Pt attempted to provide urine sample but states she cannot urinate unless eh3 she has something to drink. Pt given water and gatorade, tolerated well. 10:15 Reassessment: Pt states she needs more water before she can urinate, pt given 2 more eh3 cups of water. 10:30 Reassessment: Patient appears in no apparent distress at this time. Patient and/or eh3 family updated on plan of care and expected duration. Pain level reassessed. Patient is alert, oriented x 3, equal unlabored respirations, skin warm/dry/pink. 11:15 Reassessment: Pt provided urine sample. eh3 11:30 Reassessment: Patient appears in no apparent distress at this time. Patient and/or eh3 family updated on plan of care and expected duration. Pain level reassessed. Patient is alert, oriented x 3, equal unlabored respirations, skin warm/dry/pink. Vital Signs: 09:20 BP 132 / 89; Pulse 101; Resp 18; Temp 99.9; Pulse Ox 98% on R/A; Weight 114.31 kg; eh3 Height 5 ft. 9 in. ; Pain 7/10; 10:30 BP 116 / 91; Pulse 76; Resp 18; Pulse Ox 98% on R/A; eh3 11:30 BP 111 / 83; Pulse 72; Resp 18; Temp 99.1(O); Pulse Ox 98% on R/A; eh3 09:20 Body Mass Index 37.21 (114.31 kg, 175.26 cm) 3 09:20 Pain Scale: Adult [facility] ED Course: 08:55 Patient arrived in ED. [facility] 08:55 Lenny Hoffman PA is PHCP. [facility] 08:55 Paul Shanks DO is Attending Physician. [facility] 09:20 Marline Tilley, RN is Primary Nurse. 3 09:20 Arm band placed on right wrist. eh3 09:30 Triage completed. eh3 09:31 Patient has correct armband on for positive identification. Bed in low position. Call eh3 light in reach. Side rails up X2. Pulse ox on. NIBP on. 12:10 No provider procedures requiring assistance completed. Patient did not have IV access eh3 during this emergency room visit. Administered Medications: No medications were administered Medication: 12:10 VIS not applicable for this client. eh3 Outcome: 11:51 Discharge ordered by . [place] 12:10 Discharged to home ambulatory, with family. eh3 12:10 Condition: stable 12:10 Discharge instructions given to patient, family, Instructed on discharge instructions, follow up and referral plans. medication usage, Demonstrated understanding of instructions, follow-up care, medications, Prescriptions given X 3. 12:11 Patient left the ED. eh3 Signatures: Lenny Hoffman PA PA jmm Garcia, Rubi rg4 Marline Tilley, RN RN eh3
[2022-11-14 12:17] VITALS: O2SAT 98
[2022-11-14 12:19] VITALS: BP 111/83; TEMP 99.1
== END 2022-11-14 12:11 | disposition home or self-care (01) ==
LOC: ER 08:54
DX: L01.00 Impetigo, unspecified (principal)
CPT/HCPCS: 81025

== ENCOUNTER 2023-03-05 08:16 | Emergency (ER) | payer OTHER ==
--- OUTSIDE RECORDS SUMMARY | 2023-03-05 08:33 | XMS REPORT | Continuity of Care Document ---
:2000 Author Organization [facility] t Address [address] [place] [address] Care Team Providers Name Role Phone Unavailable Unavailable Unavailable Payers Payer Name Policy Type Policy Number Effective Date Expiration Date S ource Problems This patient has no known problems. Allergies, Adverse Reactions, Alerts Allergy Allergy Status Severity Reaction(s) Onset Inactive Treating Comm ents Source Name Type Date Date Clinician No Known DA Active U [facility] Drug 08-30 Allergie 00:00: s 00 Medications This patient has no known medications. Vital Signs Vital Name Observation Time Observation Value Comments Source 02 Sat by Pulse Oximetry 2020-08-30 16:49:36 100 /min Body Mass Index 2020-08-30 16:49:36 21.1 Height 2020-08-30 16:49:36 185.42\S\73 Pulse Rate 2020-08-30 16:49:36 70 /min Respiratory Rate 2020-08-30 16:49:36 17 /min Temperature 2020-08-30 16:49:36 37.0\S\98.6 Weight 2020-08-30 16:49:36 00292.779\S\2560 02 Sat by Pulse Oximetry 2020-08-30 16:24:28 100 /min Body Mass Index 2020-08-30 16:24:28 21.1 Height 2020-08-30 16:24:28 185.42\S\73 Pulse Rate 2020-08-30 16:24:28 70 /min Respiratory Rate 2020-08-30 16:24:28 17 /min Temperature 2020-08-30 16:24:28 37.0\S\98.6 Weight 2020-08-30 16:24:28 32760.779\S\2560 02 Sat by Pulse Oximetry 2020-08-30 16:23:57 100 /min Body Mass Index 2020-08-30 16:23:57 21.1 Height 2020-08-30 16:23:57 185.42\S\73 Pulse Rate 2020-08-30 16:23:57 70 /min Respiratory Rate 2020-08-30 16:23:57 17 /min Temperature 2020-08-30 16:23:57 37.0\S\98.6 Weight 2020-08-30 16:23:57 65563.779\S\2560 02 Sat by Pulse Oximetry 2020-08-30 16:23:26 100 /min Body Mass Index 2020-08-30 16:23:26 21.1 Height 2020-08-30 16:23:26 185.42\S\73 Pulse Rate 2020-08-30 16:23:26 70 /min Respiratory Rate 2020-08-30 16:23:26 17 /min Temperature 2020-08-30 16:23:26 37.0\S\98.6 Weight 2020-08-30 16:23:26 84927.779\S\2560 02 Sat by Pulse Oximetry 2020-08-30 16:02:24 100 /min Body Mass Index 2020-08-30 16:02:24 21.1 Height 2020-08-30 16:02:24 185.42\S\73 Pulse Rate 2020-08-30 16:02:24 76 /min Respiratory Rate 2020-08-30 16:02:24 20 /min Temperature 2020-08-30 16:02:24 97.6\S\207.7 Weight 2020-08-30 16:02:24 83501.779\S\2560 02 Sat by Pulse Oximetry 2020-08-30 15:57:47 100 /min Body Mass Index 2020-08-30 15:57:47 21.1 Height 2020-08-30 15:57:47 185.42\S\73 Pulse Rate 2020-08-30 15:57:47 76 /min Respiratory Rate 2020-08-30 15:57:47 20 /min Temperature 2020-08-30 15:57:47 97.6\S\207.7 Weight 2020-08-30 15:57:47 10868.779\S\2560 02 Sat by Pulse Oximetry 2020-08-30 15:01:57 100 /min Body Mass Index 2020-08-30 15:01:57 21.1 Height 2020-08-30 15:01:57 185.42\S\73 Pulse Rate 2020-08-30 15:01:57 68 /min Respiratory Rate 2020-08-30 15:01:57 18 /min Temperature 2020-08-30 15:01:57 36.5\S\97.7 Weight 2020-08-30 15:01:57 60636.779\S\2560 02 Sat by Pulse Oximetry 2020-08-30 13:45:28 100 /min Body Mass Index 2020-08-30 13:45:28 21.1 Height 2020-08-30 13:45:28 185.42\S\73 Pulse Rate 2020-08-30 13:45:28 68 /min Respiratory Rate 2020-08-30 13:45:28 18 /min Temperature 2020-08-30 13:45:28 36.5\S\97.7 Weight 2020-08-30 13:45:28 87506.779\S\2560 Height 2020-08-30 13:33:11 185.42\S\73 Pulse Rate 2020-08-30 13:33:11 68 /min Respiratory Rate 2020-08-30 13:33:11 18 /min Temperature 2020-08-30 13:33:11 36.5\S\97.7 Weight 2020-08-30 13:33:11 15098.779\S\2560 02 Sat by Pulse Oximetry 2020-08-30 13:33:10 100 /min Body Mass Index 2020-08-30 13:33:10 21.1 02 Sat by Pulse Oximetry 2020-08-30 12:18:45 100 /min Body Mass Index 2020-08-30 12:18:45 21.1 Height 2020-08-30 12:18:45 185.42\S\73 Pulse Rate 2020-08-30 12:18:45 68 /min Respiratory Rate 2020-08-30 12:18:45 18 /min Temperature 2020-08-30 12:18:45 36.5\S\97.7 Weight 2020-08-30 12:18:45 87234.779\S\2560 02 Sat by Pulse Oximetry 2020-08-30 11:29:51 100 /min Body Mass Index 2020-08-30 11:29:51 21.1 Height 2020-08-30 11:29:51 185.42\S\73 Pulse Rate 2020-08-30 11:29:51 68 /min Respiratory Rate 2020-08-30 11:29:51 18 /min Temperature 2020-08-30 11:29:51 36.5\S\97.7 Weight 2020-08-30 11:29:51 13581.779\S\2560 02 Sat by Pulse Oximetry 2020-08-30 11:15:27 100 /min Body Mass Index 2020-08-30 11:15:27 21.1 Height 2020-08-30 11:15:27 185.42\S\73 Pulse Rate 2020-08-30 11:15:27 68 /min Respiratory Rate 2020-08-30 11:15:27 18 /min Temperature 2020-08-30 11:15:27 36.5\S\97.7 Weight 2020-08-30 11:15:27 99199.779\S\2560 02 Sat by Pulse Oximetry 2020-08-30 11:13:55 100 /min Body Mass Index 2020-08-30 11:13:55 21.1 Height 2020-08-30 11:13:55 185.42\S\73 Pulse Rate 2020-08-30 11:13:55 68 /min Respiratory Rate 2020-08-30 11:13:55 18 /min Temperature 2020-08-30 11:13:55 36.5\S\97.7 Weight 2020-08-30 11:13:55 93846.779\S\2560 02 Sat by Pulse Oximetry 2020-08-30 11:09:18 100 /min Body Mass Index 2020-08-30 11:09:18 21.1 Height 2020-08-30 11:09:18 185.42\S\73 Pulse Rate 2020-08-30 11:09:18 68 /min Respiratory Rate 2020-08-30 11:09:18 18 /min Temperature 2020-08-30 11:09:18 36.5\S\97.7 Weight 2020-08-30 11:09:18 10953.779\S\2560 02 Sat by Pulse Oximetry 2020-08-30 11:07:46 100 /min Body Mass Index 2020-08-30 11:07:46 21.1 Height 2020-08-30 11:07:46 185.42\S\73 Pulse Rate 2020-08-30 11:07:46 68 /min Respiratory Rate 2020-08-30 11:07:46 18 /min Temperature 2020-08-30 11:07:46 36.5\S\97.7 Weight 2020-08-30 11:07:46 68537.779\S\2560 02 Sat by Pulse Oximetry 2020-08-30 11:06:45 100 /min Body Mass Index 2020-08-30 11:06:45 21.1 Height 2020-08-30 11:06:45 185.42\S\73 Pulse Rate 2020-08-30 11:06:45 68 /min Respiratory Rate 2020-08-30 11:06:45 18 /min Temperature 2020-08-30 11:06:45 36.5\S\97.7 Weight 2020-08-30 11:06:45 90156.779\S\2560 02 Sat by Pulse Oximetry 2020-08-30 11:06:14 100 /min Body Mass Index 2020-08-30 11:06:14 21.1 Height 2020-08-30 11:06:14 185.42\S\73 Pulse Rate 2020-08-30 11:06:14 68 /min Respiratory Rate 2020-08-30 11:06:14 18 /min Temperature 2020-08-30 11:06:14 36.5\S\97.7 Weight 2020-08-30 11:06:14 17036.779\S\2560 02 Sat by Pulse Oximetry 2020-08-30 11:04:10 100 /min Body Mass Index 2020-08-30 11:04:10 21.1 Height 2020-08-30 11:04:10 185.42\S\73 Pulse Rate 2020-08-30 11:04:10 68 /min Respiratory Rate 2020-08-30 11:04:10 18 /min Temperature 2020-08-30 11:04:10 36.5\S\97.7 Weight 2020-08-30 11:04:10 58810.779\S\2560 WEIGHT 2020-08-30 11:01:00 72.663202 kg HEIGHT 2020-08-30 11:01:00 185.42 cm Procedures This patient has no known procedures. Encounters Start End Encounter Admission Attending Care Care Encounter Source Date/Time Date/Time Type Type Clinicians Facility Department ID 2020-08-30 Inpatient [facility] [id number] [facility] 10:59:00 64 Results This patient has no known results.
[2023-03-05] MEDS ORDERED: LIDOCAINE 2% W/EPI 1:200,000 MPF 20 ML VIAL IM ONE (09:11)
[2023-03-05] MEDS ORDERED: HYDROCODONE/APAP 7.5/325 MG TAB ONE (09:11)
[2023-03-05] MEDS ORDERED: IBUPROFEN 400 MG TAB ONE (09:11)
--- NOTE | 2023-03-05 10:37 | EDPHYS ---
Physician Documentation [facility] Name: Trisha Carreon Age: 22 yrs Sex: Female : 2000 Arrival Date: 03/05/2023 Time: 08:16 Bed 8 Private MD: ED Physician Paul Shanks HPI: 03/05 09:00 This 22 yrs old Black Female presents to ER via Ambulatory with complaints of Boil - cp Under Right Arm. 09:00 the patient presents with a swollen area of the right axilla. Description: swollen, cp warm. Onset: The symptoms/episode began/occurred since this past weekend. 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 - Social history:: Smoking status: . ROS: 09:05 Skin: Positive for abscess, of the right axilla. cp 09:05 Constitutional: Negative for body aches, chills, fever. cp 09:05 Cardiovascular: Negative for chest pain. 09:05 Respiratory: Negative for cough. 09:05 Abdomen/GI: Negative for abdominal pain, vomiting, diarrhea. 09:05 All other systems are negative. Exam: 09:10 Constitutional: The patient appears in no acute distress, alert, awake, non-toxic, well cp developed, well nourished, uncomfortable. 09:10 Head/Face: Normocephalic, atraumatic. cp 09:10 Eyes: Periorbital structures: appear normal, Conjunctiva: normal, no exudate, no injection, Sclera: no appreciated abnormality, Lids and lashes: appear normal, bilaterally. 09:10 ENT: External ear(s): are unremarkable, Nose: is normal, Mouth: Lips: moist, Oral mucosa: moist, Posterior pharynx: Airway: no evidence of obstruction, patent. 09:10 Chest/axilla: Axilla: abscess, that is moderate in size, of the right axilla, with tenderness. 09:10 Cardiovascular: Rate: normal, Rhythm: regular. 09:10 Respiratory: the patient does not display signs of respiratory distress, Respirations: normal, no use of accessory muscles, no retractions, labored breathing, is not present, Breath sounds: are clear throughout, no decreased breath sounds. 09:10 Abdomen/GI: Exam negative for discomfort, distension, guarding, Inspection: abdomen appears normal. 09:10 Back: pain, is absent, ROM is normal. Vital Signs: 08:31 BP 108 / 78; Pulse 65; Resp 16; Temp 98.4; Pulse Ox 97% ; Weight 114.76 kg; Height 6 iw ft. 1 in. ; Pain 7/10; 08:31 Body Mass Index 33.38 (114.76 kg, 185.42 cm) iw 08:31 Pain Scale: Adult iw MDM: 08:42 Patient medically screened. cp 10:36 Data reviewed: vital signs, nurses notes. cp 10:36 Differential diagnosis: abscess, cellulitis. I considered the following discharge cp prescriptions or medication management in the emergency department Medications were administered in the Emergency Department. See MAR. Counseling: I had a detailed discussion with the patient and/or guardian regarding the historical points, exam findings, and any diagnostic results supporting the discharge/admit diagnosis, the need for outpatient follow up, a family practitioner, to return to the emergency department if symptoms worsen or persist or if there are any questions or concerns that arise at home. Response to treatment: the patient's symptoms have markedly improved after treatment, and as a result, I will discharge patient. 03/05 08:52 Order name: I\T\D Setup; Complete Time: 08:57 cp 03/05 10:36 Order name: Wound dressing; Complete Time: 10:50 cp Administered Medications: 09:03 Drug: Hydrocodone-Acetaminophen PO (7.5 mg-325 mg) 1 tabs Route: PO; ap3 10:32 Follow up: Response: No adverse reaction ap3 09:03 Drug: Ibuprofen PO 800 mg Route: PO; ap3 10:32 Follow up: Response: No adverse reaction ap3 10:32 Drug: Lidocaine-Epinephrine Infiltration -1%: (1:100,000) 10 ml {Note: administered by ap3 CP.} Volume: 20 ml; Route: Infiltration; 10:32 Drug: Bupivacaine Infiltration (0.5 %) 10 ml {Note: Administered by CP.} Volume: 10 ml; ap3 Route: Infiltration; 10:38 CANCELLED (Physician Discretion): Doxycycline PO 100 mg PO once cp 10:50 Drug: Trimethoprim-Sulfamethoxazole PO (160 mg-800 mg (DS) 1 tablet Route: PO; ap3 10:51 Follow up: Response: No adverse reaction ap3 Disposition Summary: 03/05/23 10:37 Discharge Ordered Location: Home cp Problem: new cp Symptoms: have improved cp Condition: Stable cp Diagnosis - Cutaneous abscess of right axilla cp Followup: cp - With: Private Physician - When: 48 Hours - Reason: Recheck today's complaints Discharge Instructions: - Discharge Summary Sheet cp - Skin Abscess cp - Incision and Drainage cp Forms: - Medication Reconciliation Form cp - Thank You Letter cp - Antibiotic Education cp - Prescription Opioid Use cp - Patient Portal Instructions cp - Leadership Thank You Letter cp Prescriptions: - Ibuprofen 800 mg Oral Tablet - take 1 tablet by ORAL route every 8 hours As needed take with food; 30 tablet; cp Refills: 0, Product Selection Permitted - Bactrim DS 800-160 mg Oral Tablet - take 1 tablet by ORAL route every 12 hours for 7 days; 14 tablet; Refills: 0, cp Product Selection Permitted Addendum: 03/06/2023 11:27 Co-signature as Attending Physician, Paul MONTERO was immediately available on-site m s3 in the Emergency Department for consultation in the care of the patient. Signatures: Kisha Su RN RN iw David Jovel PA PA cp Prokisch, Amanda, RN RN ap3 Paul Shanks DO DO ms3 Corrections: (The following items were deleted from the chart) 03/05 10:38 10:36 Doxycycline PO 100 mg PO once ordered. cp cp
--- NOTE | 2023-03-05 10:37 | ER ---
Nurse's Notes [facility] Name: Trisha Carreon Age: 22 yrs Sex: Female : 2000 Arrival Date: 03/05/2023 Time: 08:16 Bed 8 Private MD: Diagnosis: Cutaneous abscess of right axilla Presentation: 03/05 08:31 Chief complaint: Patient states: boil under right armpit since the weekend. Coronavirus iw screen: At this time, the client does not indicate any symptoms associated with coronavirus-19. Ebola Screen: Patient negative for fever greater than or equal to 101.5 degrees Fahrenheit, and additional compatible Ebola Virus Disease symptoms Patient denies exposure to infectious person. Patient denies travel to an Ebola-affected area in the 21 days before illness onset. No symptoms or risks identified at this time. Initial Sepsis Screen: Does the patient meet any 2 criteria? No. Patient's initial sepsis screen is negative. Does the patient have a suspected source of infection? No. Patient's initial sepsis screen is negative. Risk Assessment: Do you want to hurt yourself or someone else? Patient reports no desire to harm self or others. Onset of symptoms was March 02, 2023. 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 - Social history:: Smoking status: . Screenin:48 [facility] ED Fall Risk Assessment (Adult) History of falling in the last 3 months, ap3 including since admission No falls in past 3 months (0 pts). Abuse screen: Denies threats or abuse. Nutritional screening: No deficits noted. Tuberculosis screening: No symptoms or risk factors identified. Assessment: 08:48 General: Appears in no apparent distress. Behavior is calm, cooperative, appropriate ap3 for age. Pain: Complains of pain in right axilla. Neuro: Level of Consciousness is awake, alert, obeys commands, Oriented to person, place, time, situation. Cardiovascular: Patient's skin is warm and dry. Respiratory: Airway is patent Respiratory effort is even, unlabored, Respiratory pattern is regular, symmetrical. Derm: Abscess located on right axilla. Vital Signs: 08:31 BP 108 / 78; Pulse 65; Resp 16; Temp 98.4; Pulse Ox 97% ; Weight 114.76 kg; Height 6 iw ft. 1 in. ; Pain 7/10; 08:31 Body Mass Index 33.38 (114.76 kg, 185.42 cm) iw 08:31 Pain Scale: Adult iw ED Course: 08:18 Patient arrived in ED. mg5 08:33 David Jovel PA is PHCP. cp 08:34 Triage completed. iw 08:35 Arm band placed on. iw 08:42 David Jovel PA is PHCP. cp 08:48 Luci Donato, RN is Primary Nurse. ap3 08:49 Patient has correct armband on for positive identification. Bed in low position. Call ap3 light in reach. Side rails up X 1. 08:50 Paul Shanks DO is Attending Physician. cp 09:40 Placed in gown. ap3 10:50 Provided Education on: discharge education. ap3 10:50 No provider procedures requiring assistance completed. Patient did not have IV access ap3 during this emergency room visit. Administered Medications: 09:03 Drug: Hydrocodone-Acetaminophen PO (7.5 mg-325 mg) 1 tabs Route: PO; ap3 10:32 Follow up: Response: No adverse reaction ap3 09:03 Drug: Ibuprofen PO 800 mg Route: PO; ap3 10:32 Follow up: Response: No adverse reaction ap3 10:32 Drug: Lidocaine-Epinephrine Infiltration -1%: (1:100,000) 10 ml {Note: administered by ap3 CP.} Volume: 20 ml; Route: Infiltration; 10:32 Drug: Bupivacaine Infiltration (0.5 %) 10 ml {Note: Administered by CP.} Volume: 10 ml; ap3 Route: Infiltration; 10:38 CANCELLED (Physician Discretion): Doxycycline PO 100 mg PO once cp 10:50 Drug: Trimethoprim-Sulfamethoxazole PO (160 mg-800 mg (DS) 1 tablet Route: PO; ap3 10:51 Follow up: Response: No adverse reaction ap3 Medication: 10:50 VIS not applicable for this client. ap3 Outcome: 10:37 Discharge ordered by . cp 10:50 Discharged to home ambulatory, with family. ap3 10:50 Condition: good 10:50 Discharge instructions given to patient, family, Instructed on discharge instructions, follow up and referral plans. medication usage, wound care, Demonstrated understanding of instructions, follow-up care, medications, wound care, Prescriptions given X 2. 10:56 Patient left the ED. ap3 Signatures: Kisha Su RN RN iw Daivd Jovel PA PA cp Prokisch, Amanda, RN RN ap3 Lona Ponce 5
[2023-03-05] MEDS ORDERED: SMZ./TMP. 800/160 MG TABLET ONE (10:54)
[2023-03-05 11:12] VITALS: BP 108/78; TEMP 98.4; O2SAT 97
== END 2023-03-05 10:56 | disposition home or self-care (01) ==
LOC: ER 08:16
PROC: 0H9BXZZ Drainage of Right Upper Arm Skin, External Approach (ICD-10-PCS; principal; 2023-03-05)
DX: L02.411 Cutaneous abscess of right axilla (principal)

== ENCOUNTER 2023-03-07 08:31 | Emergency (ER) | payer OTHER ==
--- OUTSIDE RECORDS SUMMARY | 2023-03-07 08:33 | XMS REPORT | Continuity of Care Document ---
:2000 Author Organization [facility] t Address [address] [place] [address] Care Team Providers Name Role Phone Unavailable Unavailable Unavailable Payers Payer Name Policy Type Policy Number Effective Date Expiration Date S ource Problems This patient has no known problems. Allergies, Adverse Reactions, Alerts Allergy Allergy Status Severity Reaction(s) Onset Inactive Treating Comm ents Source Name Type Date Date Clinician No Known DA Active U [facility] Drug 08-30 Allergie 00:00: s 00 Medications This patient has no known medications. Vital Signs Vital Name Observation Time Observation Value Comments Source 02 Sat by Pulse Oximetry 2020-08-30 16:49:36 100 /min Body Mass Index 2020-08-30 16:49:36 21.1 Height 2020-08-30 16:49:36 185.42\S\73 Pulse Rate 2020-08-30 16:49:36 70 /min Respiratory Rate 2020-08-30 16:49:36 17 /min Temperature 2020-08-30 16:49:36 37.0\S\98.6 Weight 2020-08-30 16:49:36 26632.779\S\2560 02 Sat by Pulse Oximetry 2020-08-30 16:24:28 100 /min Body Mass Index 2020-08-30 16:24:28 21.1 Height 2020-08-30 16:24:28 185.42\S\73 Pulse Rate 2020-08-30 16:24:28 70 /min Respiratory Rate 2020-08-30 16:24:28 17 /min Temperature 2020-08-30 16:24:28 37.0\S\98.6 Weight 2020-08-30 16:24:28 91759.779\S\2560 02 Sat by Pulse Oximetry 2020-08-30 16:23:57 100 /min Body Mass Index 2020-08-30 16:23:57 21.1 Height 2020-08-30 16:23:57 185.42\S\73 Pulse Rate 2020-08-30 16:23:57 70 /min Respiratory Rate 2020-08-30 16:23:57 17 /min Temperature 2020-08-30 16:23:57 37.0\S\98.6 Weight 2020-08-30 16:23:57 86248.779\S\2560 02 Sat by Pulse Oximetry 2020-08-30 16:23:26 100 /min Body Mass Index 2020-08-30 16:23:26 21.1 Height 2020-08-30 16:23:26 185.42\S\73 Pulse Rate 2020-08-30 16:23:26 70 /min Respiratory Rate 2020-08-30 16:23:26 17 /min Temperature 2020-08-30 16:23:26 37.0\S\98.6 Weight 2020-08-30 16:23:26 75866.779\S\2560 02 Sat by Pulse Oximetry 2020-08-30 16:02:24 100 /min Body Mass Index 2020-08-30 16:02:24 21.1 Height 2020-08-30 16:02:24 185.42\S\73 Pulse Rate 2020-08-30 16:02:24 76 /min Respiratory Rate 2020-08-30 16:02:24 20 /min Temperature 2020-08-30 16:02:24 97.6\S\207.7 Weight 2020-08-30 16:02:24 78816.779\S\2560 02 Sat by Pulse Oximetry 2020-08-30 15:57:47 100 /min Body Mass Index 2020-08-30 15:57:47 21.1 Height 2020-08-30 15:57:47 185.42\S\73 Pulse Rate 2020-08-30 15:57:47 76 /min Respiratory Rate 2020-08-30 15:57:47 20 /min Temperature 2020-08-30 15:57:47 97.6\S\207.7 Weight 2020-08-30 15:57:47 22275.779\S\2560 02 Sat by Pulse Oximetry 2020-08-30 15:01:57 100 /min Body Mass Index 2020-08-30 15:01:57 21.1 Height 2020-08-30 15:01:57 185.42\S\73 Pulse Rate 2020-08-30 15:01:57 68 /min Respiratory Rate 2020-08-30 15:01:57 18 /min Temperature 2020-08-30 15:01:57 36.5\S\97.7 Weight 2020-08-30 15:01:57 00425.779\S\2560 02 Sat by Pulse Oximetry 2020-08-30 13:45:28 100 /min Body Mass Index 2020-08-30 13:45:28 21.1 Height 2020-08-30 13:45:28 185.42\S\73 Pulse Rate 2020-08-30 13:45:28 68 /min Respiratory Rate 2020-08-30 13:45:28 18 /min Temperature 2020-08-30 13:45:28 36.5\S\97.7 Weight 2020-08-30 13:45:28 33492.779\S\2560 Height 2020-08-30 13:33:11 185.42\S\73 Pulse Rate 2020-08-30 13:33:11 68 /min Respiratory Rate 2020-08-30 13:33:11 18 /min Temperature 2020-08-30 13:33:11 36.5\S\97.7 Weight 2020-08-30 13:33:11 12113.779\S\2560 02 Sat by Pulse Oximetry 2020-08-30 13:33:10 100 /min Body Mass Index 2020-08-30 13:33:10 21.1 02 Sat by Pulse Oximetry 2020-08-30 12:18:45 100 /min Body Mass Index 2020-08-30 12:18:45 21.1 Height 2020-08-30 12:18:45 185.42\S\73 Pulse Rate 2020-08-30 12:18:45 68 /min Respiratory Rate 2020-08-30 12:18:45 18 /min Temperature 2020-08-30 12:18:45 36.5\S\97.7 Weight 2020-08-30 12:18:45 00346.779\S\2560 02 Sat by Pulse Oximetry 2020-08-30 11:29:51 100 /min Body Mass Index 2020-08-30 11:29:51 21.1 Height 2020-08-30 11:29:51 185.42\S\73 Pulse Rate 2020-08-30 11:29:51 68 /min Respiratory Rate 2020-08-30 11:29:51 18 /min Temperature 2020-08-30 11:29:51 36.5\S\97.7 Weight 2020-08-30 11:29:51 43179.779\S\2560 02 Sat by Pulse Oximetry 2020-08-30 11:15:27 100 /min Body Mass Index 2020-08-30 11:15:27 21.1 Height 2020-08-30 11:15:27 185.42\S\73 Pulse Rate 2020-08-30 11:15:27 68 /min Respiratory Rate 2020-08-30 11:15:27 18 /min Temperature 2020-08-30 11:15:27 36.5\S\97.7 Weight 2020-08-30 11:15:27 93314.779\S\2560 02 Sat by Pulse Oximetry 2020-08-30 11:13:55 100 /min Body Mass Index 2020-08-30 11:13:55 21.1 Height 2020-08-30 11:13:55 185.42\S\73 Pulse Rate 2020-08-30 11:13:55 68 /min Respiratory Rate 2020-08-30 11:13:55 18 /min Temperature 2020-08-30 11:13:55 36.5\S\97.7 Weight 2020-08-30 11:13:55 67417.779\S\2560 02 Sat by Pulse Oximetry 2020-08-30 11:09:18 100 /min Body Mass Index 2020-08-30 11:09:18 21.1 Height 2020-08-30 11:09:18 185.42\S\73 Pulse Rate 2020-08-30 11:09:18 68 /min Respiratory Rate 2020-08-30 11:09:18 18 /min Temperature 2020-08-30 11:09:18 36.5\S\97.7 Weight 2020-08-30 11:09:18 28665.779\S\2560 02 Sat by Pulse Oximetry 2020-08-30 11:07:46 100 /min Body Mass Index 2020-08-30 11:07:46 21.1 Height 2020-08-30 11:07:46 185.42\S\73 Pulse Rate 2020-08-30 11:07:46 68 /min Respiratory Rate 2020-08-30 11:07:46 18 /min Temperature 2020-08-30 11:07:46 36.5\S\97.7 Weight 2020-08-30 11:07:46 91406.779\S\2560 02 Sat by Pulse Oximetry 2020-08-30 11:06:45 100 /min Body Mass Index 2020-08-30 11:06:45 21.1 Height 2020-08-30 11:06:45 185.42\S\73 Pulse Rate 2020-08-30 11:06:45 68 /min Respiratory Rate 2020-08-30 11:06:45 18 /min Temperature 2020-08-30 11:06:45 36.5\S\97.7 Weight 2020-08-30 11:06:45 21029.779\S\2560 02 Sat by Pulse Oximetry 2020-08-30 11:06:14 100 /min Body Mass Index 2020-08-30 11:06:14 21.1 Height 2020-08-30 11:06:14 185.42\S\73 Pulse Rate 2020-08-30 11:06:14 68 /min Respiratory Rate 2020-08-30 11:06:14 18 /min Temperature 2020-08-30 11:06:14 36.5\S\97.7 Weight 2020-08-30 11:06:14 41928.779\S\2560 02 Sat by Pulse Oximetry 2020-08-30 11:04:10 100 /min Body Mass Index 2020-08-30 11:04:10 21.1 Height 2020-08-30 11:04:10 185.42\S\73 Pulse Rate 2020-08-30 11:04:10 68 /min Respiratory Rate 2020-08-30 11:04:10 18 /min Temperature 2020-08-30 11:04:10 36.5\S\97.7 Weight 2020-08-30 11:04:10 21185.779\S\2560 WEIGHT 2020-08-30 11:01:00 72.135689 kg HEIGHT 2020-08-30 11:01:00 185.42 cm Procedures This patient has no known procedures. Encounters Start End Encounter Admission Attending Care Care Encounter Source Date/Time Date/Time Type Type Clinicians Facility Department ID 2020-08-30 Inpatient [facility] [id number] [facility] 10:59:00 64 Results This patient has no known results.
--- NOTE | 2023-03-07 08:59 | EDPHYS ---
Physician Documentation [facility] Name: Trisha Carreon Age: 22 yrs Sex: Female : 2000 Arrival Date: 03/07/2023 Time: 08: Bed 10 Private MD: ED Physician Lg Alvarez HPI: 03/07 08:54 This 22 yrs old Black Female presents to ER via Ambulatory with complaints of Wound rn Recheck. 08:54 Patient presents to ED for recheck of: abscess. The affected area is on the Right rn axilla. Previous treatment: The patient was initially treated 2 day(s) ago. The patient has not experienced similar symptoms in the past. The patient has been recently seen at the [facility] Emergency Department. Patient reports had abscess cut 2 days ago and packed. Patient comes in today to get wound checked. States decreased drainage. Has been changing external dressing but was unaware of packing. No other acute complaints. 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 - Social history:: Smoking status: Patient reports the use of cigarette tobacco products, smokes one-half pack cigarettes per day. - Family history:: not pertinent. - Hospitalizations: : No recent hospitalization is reported. ROS: 08:54 Constitutional: Negative for fever, chills, and weight loss. rn Exam: 08:54 Constitutional: This is a well developed, well nourished patient who is awake, alert, rn and in no acute distress. Skin: Right axilla with small amount of induration, packing is in place, no purulence expressed with pressure. No erythema or warmth. Vital Signs: 08:40 BP 125 / 79; Pulse 77; Resp 16; Temp 98; Pulse Ox 97% on R/A; Height 6 ft. 1 in. ; Pain ll1 3/10; 08:40 Pain Scale: Adult ll1 MDM: 08:33 Patient medically screened. rn 08:54 Differential diagnosis: Healing abscess. Data reviewed: vital signs, nurses notes, and rn as a result, I will discharge patient. Counseling: I had a detailed discussion with the patient and/or guardian regarding the historical points, exam findings, and any diagnostic results supporting the discharge/admit diagnosis, the need for outpatient follow up, to return to the emergency department if symptoms worsen or persist or if there are any questions or concerns that arise at home. Special discussion: I discussed with the patient/guardian in detail that at this point there is no indication for admission to the hospital. It is understood, however, that if the symptoms persist or worsen the patient needs to return immediately for re-evaluation. Based on the history and exam findings, there is no indication for further emergent testing or inpatient evaluation. I discussed with the patient/guardian the need to see the primary care provider for further evaluation of the symptoms. ED course: Abscess appears to be healing well without signs of infection progressive infection at this time. Recommend leaving packing in for 1 more day as I feel patient would not allow repacking due to pain and anxiety. Asked her to follow-up with PCP for further wound checks, if unable to get into PCP then can come back here for reevaluation. Explained to patient how to change packing herself at home and understands. Gave bottle of iodoform packing and explained how to change dressing. Return precautions given and understood.. 03/07 08:53 Order name: Wound dressing; Complete Time: 09:12 rn Administered Medications: No medications were administered Disposition Summary: 03/07/23 08:58 Discharge Ordered Location: Home rn Problem: new rn Symptoms: have improved rn Condition: Stable rn Diagnosis - Cutaneous abscess of right axilla - Healing, subsequent visit rn Followup: rn - With: Private Physician - When: As needed - Reason: Recheck today's complaints, Re-evaluation by your physician Discharge Instructions: - Discharge Summary Sheet rn - Skin Abscess rn - Wound Packing rn - Incision and Drainage, Care After rn Forms: - Medication Reconciliation Form rn - Thank You Letter rn - 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
--- NOTE | 2023-03-07 08:59 | ER ---
Nurse's Notes [facility] Name: Trisha Carreon Age: 22 yrs Sex: Female : 2000 Arrival Date: 03/07/2023 Time: 08:31 Bed 10 Private MD: Diagnosis: Cutaneous abscess of right axilla-Healing, subsequent visit Presentation: 03/07 08:40 Chief complaint: Patient states: Wound check R axilla s/p I\T\D. No fever. Coronavirus ll1 screen: Vaccine status: Patient reports receiving the 2nd dose of the covid vaccine. Client denies travel out of the [place] in the last 14 days. At this time, the client does not indicate any symptoms associated with coronavirus-19. Ebola Screen: Patient denies travel to an Ebola-affected area in the 21 days before illness onset. Initial Sepsis Screen: Does the patient meet any 2 criteria? No. Patient's initial sepsis screen is negative. Does the patient have a suspected source of infection? Yes: Skin breakdown/wound. Risk Assessment: Do you want to hurt yourself or someone else? Patient reports no desire to harm self or others. Onset of symptoms is unknown. 08:40 Method Of Arrival: Ambulatory ll1 08:40 Acuity: ROSSY 5 ll1 Triage Assessment: 08:42 General: Appears in no apparent distress. Behavior is calm, cooperative, appropriate ll1 for age. Pain: Complains of pain in R axilla Pain currently is 3 out of 10 on a pain scale. Derm: Abscess located on R axilla. 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 - Social history:: Smoking status: Patient reports the use of cigarette tobacco products, smokes one-half pack cigarettes per day. - Family history:: not pertinent. - Hospitalizations: : No recent hospitalization is reported. Screenin:42 [facility] ED Fall Risk Assessment (Adult) Score/Fall Risk Level 0 - 2 = Low Risk ll1 Oriented to surroundings, Maintained a safe environment, Educated pt \T\ family on fall prevention, incl call for assistance when getting out of bed, Hourly rounding (assess needs \T\ fall precautionary measures) done. Abuse screen: Denies threats or abuse. Nutritional screening: No deficits noted. Tuberculosis screening: No symptoms or risk factors identified. Assessment: 09:10 Reassessment: No changes from previously documented assessment. Patient and/or family ll1 updated on plan of care and expected duration. Pain level reassessed. Patient is alert, oriented x 3, equal unlabored respirations, skin warm/dry/pink. Vital Signs: 08:40 BP 125 / 79; Pulse 77; Resp 16; Temp 98; Pulse Ox 97% on R/A; Height 6 ft. 1 in. ; Pain ll1 09/14; 08:40 Pain Scale: Adult ll1 ED Course: 08:33 Patient arrived in ED. rg4 08:33 Lg Alvarez MD is Attending Physician. rn 08:40 Irlanda Maher RN is Primary Nurse. ll1 08:40 Arm band placed on Patient placed in an exam room, on a stretcher. ll1 08:42 Triage completed. ll1 08:42 Patient has correct armband on for positive identification. Bed in low position. Call ll1 light in reach. Cardiac monitoring not applicable on this patient. 09:11 Patient did not have IV access during this emergency room visit. Dressings: large ll1 bandaid. 09:12 Provided Education on: n/a. ll1 09:12 No provider procedures requiring assistance completed. ll1 Administered Medications: No medications were administered Medication: 08:43 VIS not applicable for this client. ll1 Outcome: 08:58 Discharge ordered by . rn 09:12 Patient left the ED. ll1 09:12 Discharged to home ambulatory. ll1 09:12 Condition: stable 09:12 Discharge instructions given to patient, family, Instructed on discharge instructions, follow up and referral plans. wound care, Demonstrated understanding of instructions, follow-up care, wound care. Signatures: Lg Alvarez MD MD rn Garcia, Rubi rg4 Irlanda Maher RN RN 1
[2023-03-07 09:20] VITALS: BP 125/79; TEMP 98; O2SAT 97
== END 2023-03-07 09:12 | disposition home or self-care (01) ==
LOC: ER 08:31
DX: Z48.01 Encounter for change or removal of surgical wound dressing (principal)
CPT/HCPCS: 99283

== ENCOUNTER 2023-05-27 14:13 | Emergency (ER) | payer OTHER ==
--- OUTSIDE RECORDS SUMMARY | 2023-05-27 14:15 | XMS REPORT | Continuity of Care Document ---
:2000 Author Organization [facility] t Address [address] [place] [address] Care Team Providers Name Role Phone Unavailable Unavailable Unavailable Payers Payer Name Policy Type Policy Number Effective Date Expiration Date S ource Problems This patient has no known problems. Allergies, Adverse Reactions, Alerts Allergy Allergy Status Severity Reaction(s) Onset Inactive Treating Comm ents Source Name Type Date Date Clinician No Known DA Active U [facility] Drug 08-30 Allergie 00:00: s 00 Medications This patient has no known medications. Vital Signs Vital Name Observation Time Observation Value Comments Source 02 Sat by Pulse Oximetry 2020-08-30 16:49:36 100 /min Body Mass Index 2020-08-30 16:49:36 21.1 Height 2020-08-30 16:49:36 185.42\S\73 Pulse Rate 2020-08-30 16:49:36 70 /min Respiratory Rate 2020-08-30 16:49:36 17 /min Temperature 2020-08-30 16:49:36 37.0\S\98.6 Weight 2020-08-30 16:49:36 70022.779\S\2560 02 Sat by Pulse Oximetry 2020-08-30 16:24:28 100 /min Body Mass Index 2020-08-30 16:24:28 21.1 Height 2020-08-30 16:24:28 185.42\S\73 Pulse Rate 2020-08-30 16:24:28 70 /min Respiratory Rate 2020-08-30 16:24:28 17 /min Temperature 2020-08-30 16:24:28 37.0\S\98.6 Weight 2020-08-30 16:24:28 80734.779\S\2560 02 Sat by Pulse Oximetry 2020-08-30 16:23:57 100 /min Body Mass Index 2020-08-30 16:23:57 21.1 Height 2020-08-30 16:23:57 185.42\S\73 Pulse Rate 2020-08-30 16:23:57 70 /min Respiratory Rate 2020-08-30 16:23:57 17 /min Temperature 2020-08-30 16:23:57 37.0\S\98.6 Weight 2020-08-30 16:23:57 74111.779\S\2560 02 Sat by Pulse Oximetry 2020-08-30 16:23:26 100 /min Body Mass Index 2020-08-30 16:23:26 21.1 Height 2020-08-30 16:23:26 185.42\S\73 Pulse Rate 2020-08-30 16:23:26 70 /min Respiratory Rate 2020-08-30 16:23:26 17 /min Temperature 2020-08-30 16:23:26 37.0\S\98.6 Weight 2020-08-30 16:23:26 08883.779\S\2560 02 Sat by Pulse Oximetry 2020-08-30 16:02:24 100 /min Body Mass Index 2020-08-30 16:02:24 21.1 Height 2020-08-30 16:02:24 185.42\S\73 Pulse Rate 2020-08-30 16:02:24 76 /min Respiratory Rate 2020-08-30 16:02:24 20 /min Temperature 2020-08-30 16:02:24 97.6\S\207.7 Weight 2020-08-30 16:02:24 55451.779\S\2560 02 Sat by Pulse Oximetry 2020-08-30 15:57:47 100 /min Body Mass Index 2020-08-30 15:57:47 21.1 Height 2020-08-30 15:57:47 185.42\S\73 Pulse Rate 2020-08-30 15:57:47 76 /min Respiratory Rate 2020-08-30 15:57:47 20 /min Temperature 2020-08-30 15:57:47 97.6\S\207.7 Weight 2020-08-30 15:57:47 53769.779\S\2560 02 Sat by Pulse Oximetry 2020-08-30 15:01:57 100 /min Body Mass Index 2020-08-30 15:01:57 21.1 Height 2020-08-30 15:01:57 185.42\S\73 Pulse Rate 2020-08-30 15:01:57 68 /min Respiratory Rate 2020-08-30 15:01:57 18 /min Temperature 2020-08-30 15:01:57 36.5\S\97.7 Weight 2020-08-30 15:01:57 56399.779\S\2560 02 Sat by Pulse Oximetry 2020-08-30 13:45:28 100 /min Body Mass Index 2020-08-30 13:45:28 21.1 Height 2020-08-30 13:45:28 185.42\S\73 Pulse Rate 2020-08-30 13:45:28 68 /min Respiratory Rate 2020-08-30 13:45:28 18 /min Temperature 2020-08-30 13:45:28 36.5\S\97.7 Weight 2020-08-30 13:45:28 46132.779\S\2560 Height 2020-08-30 13:33:11 185.42\S\73 Pulse Rate 2020-08-30 13:33:11 68 /min Respiratory Rate 2020-08-30 13:33:11 18 /min Temperature 2020-08-30 13:33:11 36.5\S\97.7 Weight 2020-08-30 13:33:11 78994.779\S\2560 02 Sat by Pulse Oximetry 2020-08-30 13:33:10 100 /min Body Mass Index 2020-08-30 13:33:10 21.1 02 Sat by Pulse Oximetry 2020-08-30 12:18:45 100 /min Body Mass Index 2020-08-30 12:18:45 21.1 Height 2020-08-30 12:18:45 185.42\S\73 Pulse Rate 2020-08-30 12:18:45 68 /min Respiratory Rate 2020-08-30 12:18:45 18 /min Temperature 2020-08-30 12:18:45 36.5\S\97.7 Weight 2020-08-30 12:18:45 16732.779\S\2560 02 Sat by Pulse Oximetry 2020-08-30 11:29:51 100 /min Body Mass Index 2020-08-30 11:29:51 21.1 Height 2020-08-30 11:29:51 185.42\S\73 Pulse Rate 2020-08-30 11:29:51 68 /min Respiratory Rate 2020-08-30 11:29:51 18 /min Temperature 2020-08-30 11:29:51 36.5\S\97.7 Weight 2020-08-30 11:29:51 96466.779\S\2560 02 Sat by Pulse Oximetry 2020-08-30 11:15:27 100 /min Body Mass Index 2020-08-30 11:15:27 21.1 Height 2020-08-30 11:15:27 185.42\S\73 Pulse Rate 2020-08-30 11:15:27 68 /min Respiratory Rate 2020-08-30 11:15:27 18 /min Temperature 2020-08-30 11:15:27 36.5\S\97.7 Weight 2020-08-30 11:15:27 38071.779\S\2560 02 Sat by Pulse Oximetry 2020-08-30 11:13:55 100 /min Body Mass Index 2020-08-30 11:13:55 21.1 Height 2020-08-30 11:13:55 185.42\S\73 Pulse Rate 2020-08-30 11:13:55 68 /min Respiratory Rate 2020-08-30 11:13:55 18 /min Temperature 2020-08-30 11:13:55 36.5\S\97.7 Weight 2020-08-30 11:13:55 41959.779\S\2560 02 Sat by Pulse Oximetry 2020-08-30 11:09:18 100 /min Body Mass Index 2020-08-30 11:09:18 21.1 Height 2020-08-30 11:09:18 185.42\S\73 Pulse Rate 2020-08-30 11:09:18 68 /min Respiratory Rate 2020-08-30 11:09:18 18 /min Temperature 2020-08-30 11:09:18 36.5\S\97.7 Weight 2020-08-30 11:09:18 99288.779\S\2560 02 Sat by Pulse Oximetry 2020-08-30 11:07:46 100 /min Body Mass Index 2020-08-30 11:07:46 21.1 Height 2020-08-30 11:07:46 185.42\S\73 Pulse Rate 2020-08-30 11:07:46 68 /min Respiratory Rate 2020-08-30 11:07:46 18 /min Temperature 2020-08-30 11:07:46 36.5\S\97.7 Weight 2020-08-30 11:07:46 59366.779\S\2560 02 Sat by Pulse Oximetry 2020-08-30 11:06:45 100 /min Body Mass Index 2020-08-30 11:06:45 21.1 Height 2020-08-30 11:06:45 185.42\S\73 Pulse Rate 2020-08-30 11:06:45 68 /min Respiratory Rate 2020-08-30 11:06:45 18 /min Temperature 2020-08-30 11:06:45 36.5\S\97.7 Weight 2020-08-30 11:06:45 46330.779\S\2560 02 Sat by Pulse Oximetry 2020-08-30 11:06:14 100 /min Body Mass Index 2020-08-30 11:06:14 21.1 Height 2020-08-30 11:06:14 185.42\S\73 Pulse Rate 2020-08-30 11:06:14 68 /min Respiratory Rate 2020-08-30 11:06:14 18 /min Temperature 2020-08-30 11:06:14 36.5\S\97.7 Weight 2020-08-30 11:06:14 25109.779\S\2560 02 Sat by Pulse Oximetry 2020-08-30 11:04:10 100 /min Body Mass Index 2020-08-30 11:04:10 21.1 Height 2020-08-30 11:04:10 185.42\S\73 Pulse Rate 2020-08-30 11:04:10 68 /min Respiratory Rate 2020-08-30 11:04:10 18 /min Temperature 2020-08-30 11:04:10 36.5\S\97.7 Weight 2020-08-30 11:04:10 26886.779\S\2560 WEIGHT 2020-08-30 11:01:00 72.029594 kg HEIGHT 2020-08-30 11:01:00 185.42 cm Procedures This patient has no known procedures. Encounters Start End Encounter Admission Attending Care Care Encounter Source Date/Time Date/Time Type Type Clinicians Facility Department ID 2020-08-30 Inpatient [facility] [id number] [facility] 10:59:00 64 Results This patient has no known results.
[2023-05-27 15:43] LABS: Hematocrit 39.9 % (36.0-45.0); MCV 98.2 fL (80-100); MPV 8.1 fL (7.6-11.3); Platelets 212 thou/uL (152-406); RBC Red Blood Cell Count 4.06 M/uL (3.86-4.86)
[2023-05-27 15:57] LABS: Specific Gravity > 1.030 (1.005-1.030)
[2023-05-27 16:04] LABS: Specific Gravity > 1.030 (1.005-1.030); Urine Bacteria <20 /HPF (<20); Urine Bilirubin NEGATIVE (Negative); Urine Blood 3+ (OVER) (Negative); Urine Clarity Extremely Turbid (Clear); Urine Color Brown (Yellow); Urine Crystals Unidentified Few /HPF (None Seen); Urine Glucose NEGATIVE (Negative); Urine Mucus Slight /HPF (None Seen); Urine Protein 1+ (Negative); Urine RBC >50 /HPF (None Seen); Urine Urobilinogen 1+ (Normal)
--- NOTE | 2023-05-27 16:09 | ER ---
Nurse's Notes [facility] Name: Trisha Carreon Age: 22 yrs Sex: Female : 2000 Arrival Date: 05/27/2023 Time: 14:13 Bed 11 Private MD: Diagnosis: Abnormal uterine and vaginal bleeding, unspecified Presentation: 05/27 14:40 Chief complaint: Vaginal bleeding x 3 days. Reports she is approx 3 weeks . hb Coronavirus screen: At this time, the client does not indicate any symptoms associated with coronavirus-19. Ebola Screen: No symptoms or risks identified at this time. Initial Sepsis Screen: Does the patient meet any 2 criteria? No. Patient's initial sepsis screen is negative. Does the patient have a suspected source of infection? No. Patient's initial sepsis screen is negative. Risk Assessment: Do you want to hurt yourself or someone else? Patient reports no desire to harm self or others. Onset of symptoms was May 25, 2023. 14:40 Method Of Arrival: Ambulatory hb 14:40 Acuity: ROSSY 3 hb Historical: - Allergies: 14:39 No Known Drug Allergies; hb - PMHx: 14:39 ADD/ADHD; Anxiety; insomnia; hb Screenin:32 [facility] ED Fall Risk Assessment (Adult) History of falling in the last 3 months, mb9 including since admission No falls in past 3 months (0 pts) Confusion or Disorientation No (0 pts) Intoxicated or Sedated No (0 pts) Impaired Gait No (0 pts) Mobility Assist Device Used No (0 pt) Altered Elimination No (0 pt) Score/Fall Risk Level 0 - 2 = Low Risk Oriented to surroundings, Maintained a safe environment, Educated pt \T\ family on fall prevention, incl call for assistance when getting out of bed. Abuse screen: Denies threats or abuse. Nutritional screening: No deficits noted. Tuberculosis screening: No symptoms or risk factors identified. Assessment: 15:32 General: Appears in no apparent distress. Behavior is calm, cooperative. Pain: mb9 Complains of pain in pelvis. Neuro: Holder Agitation-Sedation Scale (RASS): 0 - Alert and Calm Level of Consciousness is awake, alert, obeys commands, Oriented to person, place, time, situation, Appropriate for age. Cardiovascular: Patient's skin is warm and dry. Respiratory: Airway is patent Respiratory effort is even, unlabored, Respiratory pattern is regular, symmetrical. GI: No signs and/or symptoms were reported involving the gastrointestinal system. : Reports vaginal bleeding that is bright red. EENT: No signs and/or symptoms were reported regarding the EENT system. Derm: Skin is pink, warm \T\ dry. Musculoskeletal: Range of motion: intact in all extremities. 16:19 Reassessment: No changes from previously documented assessment. Patient and/or family mb9 updated on plan of care and expected duration. Pain level reassessed. Patient is alert, oriented x 3, equal unlabored respirations, skin warm/dry/pink. Vital Signs: 14:40 BP 114 / 79; Pulse 71; Resp 16; Temp 98.2; Pulse Ox 99% on R/A; Pain 1/10; hb 16:11 BP 112 / 76; Pulse 70; Resp 18; Pulse Ox 100% on R/A; mb9 14:40 Pain Scale: Adult hb ED Course: 14:16 Patient arrived in ED. mg5 14:19 Jeannie Zaman FNP is PHCP. jh7 14:19 Almas Valdez MD is Attending Physician. jh7 14:47 Triage completed. hb 15:32 Nicki Saldivar, AIDEN is Primary Nurse. mb9 15:32 Arm band placed on. mb9 15:33 Placed in gown. Bed in low position. Call light in reach. Side rails up X 1. Client mb9 placed on continuous cardiac and pulse oximetry monitoring. NIBP monitoring applied. 15:33 Inserted saline lock: 22 gauge in right forearm, using aseptic technique. mb9 15:33 No provider procedures requiring assistance completed. mb9 15:33 CBC w/o diff Sent. mb9 15:33 Quantitative Hcg Sent. mb9 15:48 Urinalysis W/Microscopic Sent. mb9 15:48 Test, Urine Sent. mb9 16:11 IV discontinued, intact, bleeding controlled, No redness/swelling at site. Pressure mb9 dressing applied. Administered Medications: No medications were administered Medication: 15:33 VIS not applicable for this client. mb9 Outcome: 16:09 Discharge ordered by . 7 16:19 Discharged to home ambulatory, mb9 16:19 Condition: stable 16:19 Discharge instructions given to patient, Instructed on discharge instructions, follow up and referral plans. Demonstrated understanding of instructions, follow-up care, 16:20 Patient left the ED. mb9 Signatures: Sondra Pulido RN RN Jeannie Zaman FNP FNP jh7 Nicki Saldivar RN RN mb9 Lona Ponce mg5
--- NOTE | 2023-05-27 16:09 | EDPHYS ---
Physician Documentation [facility] Name: Trisha Carreon Age: 22 yrs Sex: Female : 2000 Arrival Date: 05/27/2023 Time: 14:13 Bed 11 Private MD: ED Physician Almas Valdez HPI: 05/27 14:40 This 22 yrs old Black Female presents to ER via Ambulatory with complaints of jh7 Preg/spotting. 14:40 Onset: The symptoms/episode began/occurred 3 day(s) ago. Associated signs and symptoms: jh7 The patient has no apparent associated signs or symptoms. Patient reports that she is 3 weeks and is concerned she is having a miscarriage. G1. No significant medical history. Patient denies any other symptoms.. Historical: - Allergies: 14:39 No Known Drug Allergies; hb - PMHx: 14:39 ADD/ADHD; Anxiety; insomnia; hb ROS: 14:40 Constitutional: Negative for fever, chills, and weight loss, Eyes: Negative for injury, jh7 pain, redness, and discharge, Neck: Negative for injury, pain, and swelling, Cardiovascular: Negative for chest pain, palpitations, and edema, Respiratory: Negative for shortness of breath, cough, wheezing, and pleuritic chest pain, Abdomen/GI: Negative for abdominal pain, nausea, vomiting, diarrhea, and constipation, MS/Extremity: Negative for injury and deformity, Skin: Negative for injury, rash, and discoloration, Neuro: Negative for headache, weakness, numbness, tingling, and seizure, 14:40 : Positive for vaginal bleeding, Negative for urinary symptoms, 14:40 All other systems are negative, Exam: 14:40 Constitutional: This is a well developed, well nourished patient who is awake, alert, jh7 and in no acute distress. Cardiovascular: Regular rate and rhythm with a normal S1 and S2. No gallops, murmurs, or rubs. Normal PMI, no JVD. No pulse deficits. Respiratory: Lungs have equal breath sounds bilaterally, clear to auscultation and percussion. No rales, rhonchi or wheezes noted. No increased work of breathing, no retractions or nasal flaring. Abdomen/GI: Soft, non-tender, with normal bowel sounds. No distension or tympany. No guarding or rebound. No evidence of tenderness throughout. Skin: Warm, dry with normal turgor. Normal color with no rashes, no lesions, and no evidence of cellulitis. MS/ Extremity: Pulses equal, no cyanosis. Neurovascular intact. Full, normal range of motion. Neuro: Awake and alert, GCS 15, oriented to person, place, time, and situation. Motor strength 5/5 in all extremities. Sensory grossly intact. Normal gait. Vital Signs: 14:40 BP 114 / 79; Pulse 71; Resp 16; Temp 98.2; Pulse Ox 99% on R/A; Pain 1/10; hb 16:11 BP 112 / 76; Pulse 70; Resp 18; Pulse Ox 100% on R/A; mb9 14:40 Pain Scale: Adult hb MDM: 14:19 Patient medically screened. [facility] 16:10 Differential diagnosis: Miscarriage, menstrual cycle, abnormal uterine bleeding. Data [facility] reviewed: vital signs, nurses notes, lab test result(s). Counseling: I had a detailed discussion with the patient and/or guardian regarding the historical points, exam findings, and any diagnostic results supporting the discharge/admit diagnosis, to return to the emergency department if symptoms worsen or persist or if there are any questions or concerns that arise at home. Special discussion: Informed the patient that her beta hCG was less than 1 and that she likely started her menstrual cycle. All questions answered.. 05/27 14:34 Order name: Test, Urine; Complete Time: 16:05 [facility] 05/27 14:34 Order name: Urinalysis W/Microscopic; Complete Time: 16:05 [facility] 05/27 14:34 Order name: Quantitative Hcg; Complete Time: 16:05 [facility] 05/27 14:34 Order name: CBC w/o diff; Complete Time: 16:05 [facility] 05/27 16:07 Order name: Urine Culture EDMS 05/27 15:33 Order name: IV Saline Lock; Complete Time: 15:33 mb9 Administered Medications: No medications were administered Disposition: 20:46 Co-signature as Attending Physician, Almas Valdez MD I reviewed the patient's care rt provided by the Advanced Practice Provider and agree with the diagnosis and treatment plan. Disposition Summary: 05/27/23 16:09 Discharge Ordered Notes: Location: Home [facility] Problem: new [facility] Symptoms: are unchanged [facility] Condition: Stable [facility] Diagnosis - Abnormal uterine and vaginal bleeding, unspecified [facility] Followup: [facility] - With: Private Physician - When: 2 - 3 days - Reason: Recheck today's complaints Discharge Instructions: - Discharge Summary Sheet [facility] - Dysfunctional Uterine Bleeding [facility] Forms: - Medication Reconciliation Form [facility] - Thank You Letter [facility] - Patient Portal Instructions [facility] - Leadership Thank You Letter [facility] Signatures: Dispatcher [employer] Sondra Weaver RN RN Jeannie Zaman FNP [employer] [facility] Nicki Saldivar RN RN mb9 Almas Valdez MD MD rt
[2023-05-27 18:38] VITALS: TEMP 98.2
[2023-05-27 18:39] VITALS: BP 112/76; O2SAT 100
== END 2023-05-27 16:20 | disposition home or self-care (01) ==
LOC: ER 14:13
DX: N93.9 Abnormal uterine and vaginal bleeding, unspecified (principal)
CPT/HCPCS: 36415; 81001; 81025; 84702; 85027; 87086; 87088; 99284

== ENCOUNTER 2024-05-01 23:31 | Emergency (ER) | payer OTHER ==
--- OUTSIDE RECORDS SUMMARY | 2024-05-01 23:35 | XMS REPORT | Continuity of Care Document ---
Author Name Unknown Address [address] [facility] [address] [place] [address] [facility] thconnect Address [address] [facility] [address] [place] [address] Care Team Providers Care Asphalt Paver Name Role Phone Unavailable Unavailable Unavailable Payers Payer Name Policy Type Policy Number Effective Date Expirati on Date Source Allergies, Adverse Reactions, Alerts Allergy Name Allergy Type Status Severity Reaction(s) Onset Date Inactive Date Treating Clinician Comments Source No Known Drug Allergie s DA Active U 08-30 00:00: 00 [facility] Vital Signs Vital Name Observation Time Observation Value Comments S ource 02 Sat by Pulse Oximetry 2020-08-30 16:49:36 100 /min Body Mass Index 2020-08-30 16:49:36 21.1 Height 2020-08-30 16:49:36 185.42\S\73 Pulse Rate 2020-08-30 16:49:36 70 /min Respiratory Rate 2020-08-30 16:49:36 17 /min Temperature 2020-08-30 16:49:36 37.0\S\98.6 Weight 2020-08-30 16:49:36 58732.779\S\2560 02 Sat by Pulse Oximetry 2020-08-30 16:24:28 100 /min Body Mass Index 2020-08-30 16:24:28 21.1 Height 2020-08-30 16:24:28 185.42\S\73 Pulse Rate 2020-08-30 16:24:28 70 /min Respiratory Rate 2020-08-30 16:24:28 17 /min Temperature 2020-08-30 16:24:28 37.0\S\98.6 Weight 2020-08-30 16:24:28 76281.779\S\2560 02 Sat by Pulse Oximetry 2020-08-30 16:23:57 100 /min Body Mass Index 2020-08-30 16:23:57 21.1 Height 2020-08-30 16:23:57 185.42\S\73 Pulse Rate 2020-08-30 16:23:57 70 /min Respiratory Rate 2020-08-30 16:23:57 17 /min Temperature 2020-08-30 16:23:57 37.0\S\98.6 Weight 2020-08-30 16:23:57 98049.779\S\2560 02 Sat by Pulse Oximetry 2020-08-30 16:23:26 100 /min Body Mass Index 2020-08-30 16:23:26 21.1 Height 2020-08-30 16:23:26 185.42\S\73 Pulse Rate 2020-08-30 16:23:26 70 /min Respiratory Rate 2020-08-30 16:23:26 17 /min Temperature 2020-08-30 16:23:26 37.0\S\98.6 Weight 2020-08-30 16:23:26 76695.779\S\2560 02 Sat by Pulse Oximetry 2020-08-30 16:02:24 100 /min Body Mass Index 2020-08-30 16:02:24 21.1 Height 2020-08-30 16:02:24 185.42\S\73 Pulse Rate 2020-08-30 16:02:24 76 /min Respiratory Rate 2020-08-30 16:02:24 20 /min Temperature 2020-08-30 16:02:24 97.6\S\207.7 Weight 2020-08-30 16:02:24 98146.779\S\2560 02 Sat by Pulse Oximetry 2020-08-30 15:57:47 100 /min Body Mass Index 2020-08-30 15:57:47 21.1 Height 2020-08-30 15:57:47 185.42\S\73 Pulse Rate 2020-08-30 15:57:47 76 /min Respiratory Rate 2020-08-30 15:57:47 20 /min Temperature 2020-08-30 15:57:47 97.6\S\207.7 Weight 2020-08-30 15:57:47 68486.779\S\2560 02 Sat by Pulse Oximetry 2020-08-30 15:01:57 100 /min Body Mass Index 2020-08-30 15:01:57 21.1 Height 2020-08-30 15:01:57 185.42\S\73 Pulse Rate 2020-08-30 15:01:57 68 /min Respiratory Rate 2020-08-30 15:01:57 18 /min Temperature 2020-08-30 15:01:57 36.5\S\97.7 Weight 2020-08-30 15:01:57 63234.779\S\2560 02 Sat by Pulse Oximetry 2020-08-30 13:45:28 100 /min Body Mass Index 2020-08-30 13:45:28 21.1 Height 2020-08-30 13:45:28 185.42\S\73 Pulse Rate 2020-08-30 13:45:28 68 /min Respiratory Rate 2020-08-30 13:45:28 18 /min Temperature 2020-08-30 13:45:28 36.5\S\97.7 Weight 2020-08-30 13:45:28 19097.779\S\2560 Height 2020-08-30 13:33:11 185.42\S\73 Pulse Rate 2020-08-30 13:33:11 68 /min Respiratory Rate 2020-08-30 13:33:11 18 /min Temperature 2020-08-30 13:33:11 36.5\S\97.7 Weight 2020-08-30 13:33:11 64074.779\S\2560 02 Sat by Pulse Oximetry 2020-08-30 13:33:10 100 /min Body Mass Index 2020-08-30 13:33:10 21.1 02 Sat by Pulse Oximetry 2020-08-30 12:18:45 100 /min Body Mass Index 2020-08-30 12:18:45 21.1 Height 2020-08-30 12:18:45 185.42\S\73 Pulse Rate 2020-08-30 12:18:45 68 /min Respiratory Rate 2020-08-30 12:18:45 18 /min Temperature 2020-08-30 12:18:45 36.5\S\97.7 Weight 2020-08-30 12:18:45 91119.779\S\2560 02 Sat by Pulse Oximetry 2020-08-30 11:29:51 100 /min Body Mass Index 2020-08-30 11:29:51 21.1 Height 2020-08-30 11:29:51 185.42\S\73 Pulse Rate 2020-08-30 11:29:51 68 /min Respiratory Rate 2020-08-30 11:29:51 18 /min Temperature 2020-08-30 11:29:51 36.5\S\97.7 Weight 2020-08-30 11:29:51 86346.779\S\2560 02 Sat by Pulse Oximetry 2020-08-30 11:15:27 100 /min Body Mass Index 2020-08-30 11:15:27 21.1 Height 2020-08-30 11:15:27 185.42\S\73 Pulse Rate 2020-08-30 11:15:27 68 /min Respiratory Rate 2020-08-30 11:15:27 18 /min Temperature 2020-08-30 11:15:27 36.5\S\97.7 Weight 2020-08-30 11:15:27 54154.779\S\2560 02 Sat by Pulse Oximetry 2020-08-30 11:13:55 100 /min Body Mass Index 2020-08-30 11:13:55 21.1 Height 2020-08-30 11:13:55 185.42\S\73 Pulse Rate 2020-08-30 11:13:55 68 /min Respiratory Rate 2020-08-30 11:13:55 18 /min Temperature 2020-08-30 11:13:55 36.5\S\97.7 Weight 2020-08-30 11:13:55 24889.779\S\2560 02 Sat by Pulse Oximetry 2020-08-30 11:09:18 100 /min Body Mass Index 2020-08-30 11:09:18 21.1 Height 2020-08-30 11:09:18 185.42\S\73 Pulse Rate 2020-08-30 11:09:18 68 /min Respiratory Rate 2020-08-30 11:09:18 18 /min Temperature 2020-08-30 11:09:18 36.5\S\97.7 Weight 2020-08-30 11:09:18 57351.779\S\2560 02 Sat by Pulse Oximetry 2020-08-30 11:07:46 100 /min Body Mass Index 2020-08-30 11:07:46 21.1 Height 2020-08-30 11:07:46 185.42\S\73 Pulse Rate 2020-08-30 11:07:46 68 /min Respiratory Rate 2020-08-30 11:07:46 18 /min Temperature 2020-08-30 11:07:46 36.5\S\97.7 Weight 2020-08-30 11:07:46 30809.779\S\2560 02 Sat by Pulse Oximetry 2020-08-30 11:06:45 100 /min Body Mass Index 2020-08-30 11:06:45 21.1 Height 2020-08-30 11:06:45 185.42\S\73 Pulse Rate 2020-08-30 11:06:45 68 /min Respiratory Rate 2020-08-30 11:06:45 18 /min Temperature 2020-08-30 11:06:45 36.5\S\97.7 Weight 2020-08-30 11:06:45 72534.779\S\2560 02 Sat by Pulse Oximetry 2020-08-30 11:06:14 100 /min Body Mass Index 2020-08-30 11:06:14 21.1 Height 2020-08-30 11:06:14 185.42\S\73 Pulse Rate 2020-08-30 11:06:14 68 /min Respiratory Rate 2020-08-30 11:06:14 18 /min Temperature 2020-08-30 11:06:14 36.5\S\97.7 Weight 2020-08-30 11:06:14 35374.779\S\2560 02 Sat by Pulse Oximetry 2020-08-30 11:04:10 100 /min Body Mass Index 2020-08-30 11:04:10 21.1 Height 2020-08-30 11:04:10 185.42\S\73 Pulse Rate 2020-08-30 11:04:10 68 /min Respiratory Rate 2020-08-30 11:04:10 18 /min Temperature 2020-08-30 11:04:10 36.5\S\97.7 Weight 2020-08-30 11:04:10 24403.779\S\2560 WEIGHT 2020-08-30 11:01:00 72.848216 kg HEIGHT 2020-08-30 11:01:00 185.42 cm Encounters Start Date/Time End Date/Time Encounter Type Admission Type Attending [facility] Care Department Encounter ID Source 2020-08-30 10:59:00 Inpatient [facility] [id number] [facility]
[2024-05-01] MEDS ORDERED: HYDROCODONE/APAP 10/325 TAB ONE (23:50)
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
[2024-05-02] MEDS ORDERED: CEFTRIAXONE 500 MG/VIAL ONE (06:10)
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
[2024-05-02] MEDS ORDERED: WATER FOR INJ,STERILE 10 ML ONE (06:11)
[2024-05-02] MEDS ORDERED: ONDANSETRON 4 MG (ODT) TAB ONE (06:11)
[2024-05-02] MEDS ORDERED: AZITHROMYCIN 250 MG TAB ONE (06:11)
[2024-05-02] MEDS ORDERED: metroNIDAZOLE 500 MG TABLET ONE (06:11)
[2024-05-02 17:56] VITALS: TEMP 98.2
[2024-05-02 18:00] VITALS: BP 135/88; O2SAT 98
== END 2024-05-02 06:44 | disposition home or self-care (01) ==
LOC: ER 23:31 → EDBD 23:31 → ER 05-02 06:44
DX: T76.21XA Adult sexual abuse, suspected, initial encounter (principal)
CPT/HCPCS: 70450; 72125; 70486; 76377; Q0162; 96372; 99284

== ENCOUNTER 2025-03-24 16:49 | Emergency (ER) | payer MEDICAID ==
--- OUTSIDE RECORDS SUMMARY | 2025-03-24 16:52 | XMS REPORT | Continuity of Care Document ---
Author Name Unknown Address [address] [facility] [address] [place] [address] [facility] Address [address] [facility] [address] [place] [address] Care Team Providers Care Graduate Rn Name Role Phone Unavailable Unavailable Unavailable Payers Payer Name Policy Type Policy Number Effective Date Expirati on Date Source Allergies, Adverse Reactions, Alerts Allergy Name Allergy Type Status Severity Reaction(s) Onset Date Inactive Date Treating Clinician Comments Source No Known Drug Allergie s DA Active U 08-30 00:00: 00 [facility] Vital Signs Vital Name Observation Time Observation Value Comments S ource 02 Sat by Pulse Oximetry 2020-08-30 16:49:36 100 /min Body Mass Index 2020-08-30 16:49:36 21.1 Height 2020-08-30 16:49:36 185.42\S\73 Pulse Rate 2020-08-30 16:49:36 70 /min Respiratory Rate 2020-08-30 16:49:36 17 /min Temperature 2020-08-30 16:49:36 37.0\S\98.6 Weight 2020-08-30 16:49:36 14476.779\S\2560 02 Sat by Pulse Oximetry 2020-08-30 16:24:28 100 /min Body Mass Index 2020-08-30 16:24:28 21.1 Height 2020-08-30 16:24:28 185.42\S\73 Pulse Rate 2020-08-30 16:24:28 70 /min Respiratory Rate 2020-08-30 16:24:28 17 /min Temperature 2020-08-30 16:24:28 37.0\S\98.6 Weight 2020-08-30 16:24:28 76933.779\S\2560 02 Sat by Pulse Oximetry 2020-08-30 16:23:57 100 /min Body Mass Index 2020-08-30 16:23:57 21.1 Height 2020-08-30 16:23:57 185.42\S\73 Pulse Rate 2020-08-30 16:23:57 70 /min Respiratory Rate 2020-08-30 16:23:57 17 /min Temperature 2020-08-30 16:23:57 37.0\S\98.6 Weight 2020-08-30 16:23:57 73217.779\S\2560 02 Sat by Pulse Oximetry 2020-08-30 16:23:26 100 /min Body Mass Index 2020-08-30 16:23:26 21.1 Height 2020-08-30 16:23:26 185.42\S\73 Pulse Rate 2020-08-30 16:23:26 70 /min Respiratory Rate 2020-08-30 16:23:26 17 /min Temperature 2020-08-30 16:23:26 37.0\S\98.6 Weight 2020-08-30 16:23:26 59235.779\S\2560 02 Sat by Pulse Oximetry 2020-08-30 16:02:24 100 /min Body Mass Index 2020-08-30 16:02:24 21.1 Height 2020-08-30 16:02:24 185.42\S\73 Pulse Rate 2020-08-30 16:02:24 76 /min Respiratory Rate 2020-08-30 16:02:24 20 /min Temperature 2020-08-30 16:02:24 97.6\S\207.7 Weight 2020-08-30 16:02:24 46304.779\S\2560 02 Sat by Pulse Oximetry 2020-08-30 15:57:47 100 /min Body Mass Index 2020-08-30 15:57:47 21.1 Height 2020-08-30 15:57:47 185.42\S\73 Pulse Rate 2020-08-30 15:57:47 76 /min Respiratory Rate 2020-08-30 15:57:47 20 /min Temperature 2020-08-30 15:57:47 97.6\S\207.7 Weight 2020-08-30 15:57:47 40092.779\S\2560 02 Sat by Pulse Oximetry 2020-08-30 15:01:57 100 /min Body Mass Index 2020-08-30 15:01:57 21.1 Height 2020-08-30 15:01:57 185.42\S\73 Pulse Rate 2020-08-30 15:01:57 68 /min Respiratory Rate 2020-08-30 15:01:57 18 /min Temperature 2020-08-30 15:01:57 36.5\S\97.7 Weight 2020-08-30 15:01:57 55992.779\S\2560 02 Sat by Pulse Oximetry 2020-08-30 13:45:28 100 /min Body Mass Index 2020-08-30 13:45:28 21.1 Height 2020-08-30 13:45:28 185.42\S\73 Pulse Rate 2020-08-30 13:45:28 68 /min Respiratory Rate 2020-08-30 13:45:28 18 /min Temperature 2020-08-30 13:45:28 36.5\S\97.7 Weight 2020-08-30 13:45:28 81789.779\S\2560 Height 2020-08-30 13:33:11 185.42\S\73 Pulse Rate 2020-08-30 13:33:11 68 /min Respiratory Rate 2020-08-30 13:33:11 18 /min Temperature 2020-08-30 13:33:11 36.5\S\97.7 Weight 2020-08-30 13:33:11 78734.779\S\2560 02 Sat by Pulse Oximetry 2020-08-30 13:33:10 100 /min Body Mass Index 2020-08-30 13:33:10 21.1 02 Sat by Pulse Oximetry 2020-08-30 12:18:45 100 /min Body Mass Index 2020-08-30 12:18:45 21.1 Height 2020-08-30 12:18:45 185.42\S\73 Pulse Rate 2020-08-30 12:18:45 68 /min Respiratory Rate 2020-08-30 12:18:45 18 /min Temperature 2020-08-30 12:18:45 36.5\S\97.7 Weight 2020-08-30 12:18:45 90662.779\S\2560 02 Sat by Pulse Oximetry 2020-08-30 11:29:51 100 /min Body Mass Index 2020-08-30 11:29:51 21.1 Height 2020-08-30 11:29:51 185.42\S\73 Pulse Rate 2020-08-30 11:29:51 68 /min Respiratory Rate 2020-08-30 11:29:51 18 /min Temperature 2020-08-30 11:29:51 36.5\S\97.7 Weight 2020-08-30 11:29:51 83940.779\S\2560 02 Sat by Pulse Oximetry 2020-08-30 11:15:27 100 /min Body Mass Index 2020-08-30 11:15:27 21.1 Height 2020-08-30 11:15:27 185.42\S\73 Pulse Rate 2020-08-30 11:15:27 68 /min Respiratory Rate 2020-08-30 11:15:27 18 /min Temperature 2020-08-30 11:15:27 36.5\S\97.7 Weight 2020-08-30 11:15:27 23604.779\S\2560 02 Sat by Pulse Oximetry 2020-08-30 11:13:55 100 /min Body Mass Index 2020-08-30 11:13:55 21.1 Height 2020-08-30 11:13:55 185.42\S\73 Pulse Rate 2020-08-30 11:13:55 68 /min Respiratory Rate 2020-08-30 11:13:55 18 /min Temperature 2020-08-30 11:13:55 36.5\S\97.7 Weight 2020-08-30 11:13:55 46994.779\S\2560 02 Sat by Pulse Oximetry 2020-08-30 11:09:18 100 /min Body Mass Index 2020-08-30 11:09:18 21.1 Height 2020-08-30 11:09:18 185.42\S\73 Pulse Rate 2020-08-30 11:09:18 68 /min Respiratory Rate 2020-08-30 11:09:18 18 /min Temperature 2020-08-30 11:09:18 36.5\S\97.7 Weight 2020-08-30 11:09:18 02262.779\S\2560 02 Sat by Pulse Oximetry 2020-08-30 11:07:46 100 /min Body Mass Index 2020-08-30 11:07:46 21.1 Height 2020-08-30 11:07:46 185.42\S\73 Pulse Rate 2020-08-30 11:07:46 68 /min Respiratory Rate 2020-08-30 11:07:46 18 /min Temperature 2020-08-30 11:07:46 36.5\S\97.7 Weight 2020-08-30 11:07:46 60600.779\S\2560 02 Sat by Pulse Oximetry 2020-08-30 11:06:45 100 /min Body Mass Index 2020-08-30 11:06:45 21.1 Height 2020-08-30 11:06:45 185.42\S\73 Pulse Rate 2020-08-30 11:06:45 68 /min Respiratory Rate 2020-08-30 11:06:45 18 /min Temperature 2020-08-30 11:06:45 36.5\S\97.7 Weight 2020-08-30 11:06:45 43706.779\S\2560 02 Sat by Pulse Oximetry 2020-08-30 11:06:14 100 /min Body Mass Index 2020-08-30 11:06:14 21.1 Height 2020-08-30 11:06:14 185.42\S\73 Pulse Rate 2020-08-30 11:06:14 68 /min Respiratory Rate 2020-08-30 11:06:14 18 /min Temperature 2020-08-30 11:06:14 36.5\S\97.7 Weight 2020-08-30 11:06:14 74634.779\S\2560 02 Sat by Pulse Oximetry 2020-08-30 11:04:10 100 /min Body Mass Index 2020-08-30 11:04:10 21.1 Height 2020-08-30 11:04:10 185.42\S\73 Pulse Rate 2020-08-30 11:04:10 68 /min Respiratory Rate 2020-08-30 11:04:10 18 /min Temperature 2020-08-30 11:04:10 36.5\S\97.7 Weight 2020-08-30 11:04:10 81975.779\S\2560 WEIGHT 2020-08-30 11:01:00 72.591300 kg HEIGHT 2020-08-30 11:01:00 185.42 cm Encounters Start Date/Time End Date/Time Encounter Type Admission Type Attending [facility] Care Department Encounter ID Source 2020-08-30 10:59:00 Inpatient [facility] [id number] [facility]
[2025-03-24 17:46] LABS: Absolute Lymphocytes (CBC) 1.6 K/uL (0.7-4.9); Hematocrit 40.4 % (36.0-45.0); Hemoglobin 13.7 g/dL (12.0-15.0); MCH 32.5 pg (27.0-35.0); MCHC 33.9 g/dL (32.0-36.0); MCV 95.8 fL (80-100); MPV 8.2 fL (7.6-11.3); Nucleated RBC Absolute Count 0.0 (0-0); Nucleated Red Blood Cells % 0.1 % (0-0); RBC Red Blood Cell Count 4.22 M/uL (3.86-4.86); White Blood Count 5.60 thou/uL (4.3-10.9)
[2025-03-24 17:49] LABS: Urine Culture Reflex Order NOT NEEDED; Urine Microscopic Reflex YN ORDER UMIC
[2025-03-24 18:06] LABS: ALT/SGPT 21.0 U/L (13-56); AST/SGOT 14.0 U/L (15-37); Albumin 3.2 g/dL (3.4-5.0); Albumin/Globulin Ratio 0.9 (1.1-1.8); Alkaline Phosphatase 53.0 U/L (45-117); Anion Gap 8.9 mEq/L (5.0-15.0); BUN Blood Urea Nitrogen 7.0 mg/dL (7-18); Globulin 3.6 g/dL (2.3-3.5); Glucose Level 97.0 mg/dL (74-106); Lipase 35.0 U/L (13-75); Potassium 3.9 mEq/L (3.5-5.1)
[2025-03-24] MEDS ORDERED: ACETAMINOPHEN 500 MG TAB ONE (18:08)
--- NOTE | 2025-03-24 18:49 | RAD REPORT ---
Pelvis Complete CLINICAL INDICATION: Female 24 years old lower abdomen pain TECHNIQUE: Real-time ultrasonography of the pelvis was performed transabdominally. Color and spectral Doppler evaluation of the ovaries was performed. [id number]. COMPARISON: No prior exam. FINDINGS: UTERUS AND CERVIX: The uterus measures 5.4 x 3.1 x 2.7 cm (cervix to fundus x AP x transverse). The u terus is normal. No masses seen . The endometrium is normal,4 mm thickness. RIGHT OVARY: Normal The right ovary measures 2.8 x 2.4 x 2.2 cm with volume of 7.5 mL. Normal color a nd spectral Doppler evaluation of the right ovary.. LEFT OVARY: Normal The left ovary measures 2.9 x 2 x 1.9 cm with volume of 5.8 mL. Normal Color and spectral Doppler evaluation of the left ovary.. FREE FLUID: No free fluid. IMPRESSION: 1. No acute findings identified. 2. Bilateral ovarian blood flow.
--- NOTE | 2025-03-24 19:29 | ER ---
Nurse's Notes [facility] Name: Sary Carreon Age: 24 yrs Sex: Female : 2000 Arrival Date: 03/24/2025 Time: 16:49 Bed 8 Private MD: Diagnosis: Lower abdominal pain, unspecified Presentation: 03/24 17:04 Chief complaint: Lower abdominal pain and nausea x 2 days. Concerned she may be hb . LMP unknown, spotty vaginal bleeding for one day a week ago. Coronavirus screen: At this time, the client does not indicate any symptoms associated with coronavirus-19. Ebola Screen: No symptoms or risks identified at this time. Initial Sepsis Screen: Does the patient meet any 2 criteria? No. Patient's initial sepsis screen is negative. Does the patient have a suspected source of infection? No. Patient's initial sepsis screen is negative. Risk Assessment: Do you want to hurt yourself or someone else? Patient reports no desire to harm self or others. Onset of symptoms was March 23, 2025. 17:04 Method Of Arrival: Ambulatory 17:04 Acuity: ROSSY 3 hb Triage Assessment: 17:10 General: Appears in no apparent distress. Behavior is cooperative, appropriate for age, bp anxious. Pain: Complains of pain in abdomen. EENT: No deficits noted. Neuro: No deficits noted. Cardiovascular: No deficits noted. Respiratory: No deficits noted. GI: Abdomen is non-distended, Reports lower abdominal pain, nausea. : No signs and/or symptoms were reported regarding the genitourinary system. Derm: No deficits noted. Musculoskeletal: No deficits noted. Historical: - Allergies: 17:06 No Known Drug Allergies; hb - PMHx: 17:06 ADD/ADHD; Anxiety; insomnia; hb - Immunization history:: Adult Immunizations up to date. - Infectious Disease History:: Denies. - Social history:: Smoking status: Patient denies any tobacco usage or history of. Screenin:10 [facility] ED Fall Risk Assessment (Adult) History of falling in the last 3 months, bp including since admission No falls in past 3 months (0 pts) Confusion or Disorientation No (0 pts) Intoxicated or Sedated No (0 pts) Impaired Gait No (0 pts) Mobility Assist Device Used No (0 pt) Altered Elimination No (0 pt) Score/Fall Risk Level 0 - 2 = Low Risk Oriented to surroundings. Abuse screen: Denies threats or abuse. Denies injuries from another. Nutritional screening: No deficits noted. Tuberculosis screening: No symptoms or risk factors identified. Assessment: 17:10 General: SEE TRIAGE NOTE. bp 18:15 Reassessment: Patient appears in no apparent distress at this time. Patient and/or db family updated on plan of care and expected duration. Pain level reassessed. Patient is alert, oriented x 3, equal unlabored respirations, skin warm/dry/pink. Neuro: Level of Consciousness is awake, alert, obeys commands, Oriented to person, place, time, situation. Respiratory: Airway is patent Respiratory effort is even, unlabored, Respiratory pattern is regular, symmetrical. 19:05 General: Appears in no apparent distress. comfortable, Behavior is calm, cooperative. cc6 19:05 Pain: Denies pain. Neuro: Level of Consciousness is awake, alert, obeys commands, cc6 Oriented to person, place, time, situation. Cardiovascular: Patient's skin is warm and dry. Respiratory: Airway is patent Respiratory effort is even, unlabored, Respiratory pattern is regular, symmetrical. GI: Bowel sounds present X 4 quads. Abd is soft and non tender X 4 quads. : No signs and/or symptoms were reported regarding the genitourinary system. EENT: No signs and/or symptoms were reported regarding the EENT system. Vital Signs: 17:04 BP 119 / 83; Pulse 73; Resp 16; Temp 98.3(O); Pulse Ox 99% on R/A; Weight 101.3 kg (M); hb Height 6 ft. 1 in. ; Pain 8/10; 17:43 BP 123 / 88; Pulse 83; Resp 15; Pulse Ox 97% ; bp 18:15 BP 102 / 75; Pulse 76; Resp 16; Pulse Ox 100% ; db 19:37 BP 102 / 91; Pulse 77; Resp 16; Pulse Ox 100% on R/A; cc6 17:04 Body Mass Index 29.46 (101.30 kg, 185.42 cm) hb 17:04 Pain Scale: Adult hb ED Course: 16:52 Patient arrived in ED. al6 16:57 David Jovel PA-C is PHCP. cp 16:57 Kemi Virk MD is Attending Physician. cp 17:06 Triage completed. hb 17:06 Arm band placed on. hb 17:10 Patient has correct armband on for positive identification. bp 17:26 Aly Kamara, RN is Primary Nurse. bp 17:40 Initial lab(s) drawn, by me, sent to lab. Urine collected: clean catch specimen, clear. bp Inserted saline lock: 20 gauge in right forearm, using aseptic technique. Blood collected. Flushed with 10 mL NS. 18:41 US Pelvis Complete In Process Unspecified. EDMS Administered Medications: 18:11 Drug: Acetaminophen PO 1000 mg PO once Route: PO; db 19:38 Follow up: Response: No adverse reaction; Pain is decreased cc6 Medication: 17:10 VIS not applicable for this client. bp Outcome: 19:28 Discharge ordered by . cp 19:38 Patient left the ED. cc6 Signatures: Dispatcher [employer] EDMS David Jovel PA-C PA-C cp Baxter, Heather, RN RN Aly Kamara, RN RN bp An Newberry, AIDEN RN db Nicky Crook RN RN cc6 Faye Gamble ct6
--- NOTE | 2025-03-24 19:29 | EDPHYS ---
Physician Documentation [facility] Name: Sary Carreon Age: 24 yrs Sex: Female : 2000 Arrival Date: 03/24/2025 Time: 16:49 Bed 8 Private MD: ED Physician Kemi Virk HPI: 03/24 17:20 This 24 yrs old Black Female presents to ER via Ambulatory with complaints of Abdominal cp Pain. 17:20 The patient presents with abdominal pain in the lower abdomen. Onset: The cp symptoms/episode began/occurred 2 day(s) ago. The symptoms do not radiate. 17:20 Associated signs and symptoms: Pertinent positives: nausea. The symptoms are described cp as crampy. Patient reports concern for possible but reports menstrual cycle ended yesterday and no current menstrual bleeding. Historical: - Allergies: 17:06 No Known Drug Allergies; hb - PMHx: 17:06 ADD/ADHD; Anxiety; insomnia; hb - Immunization history:: Adult Immunizations up to date. - Infectious Disease History:: Denies. - Social history:: Smoking status: Patient denies any tobacco usage or history of. ROS: 17:25 Constitutional: Negative for body aches, chills, fever, poor PO intake, cp 17:25 Eyes: Negative for injury, pain, redness, and discharge, cp 17:25 Cardiovascular: Negative for chest pain, edema, palpitations, 17:25 Abdomen/GI: Positive for abdominal pain, of the suprapubic area, right lower quadrant and left lower quadrant, Negative for vomiting, diarrhea, constipation, anorexia, Exam: 17:35 Constitutional: The patient appears in no acute distress, alert, awake, comfortable, cp non-toxic, well developed, well nourished, 17:35 Head/Face: Normocephalic, atraumatic. cp 17:35 Eyes: Periorbital structures: appear normal, Conjunctiva: normal, no exudate, no injection, Sclera: no appreciated abnormality, Lids and lashes: appear normal, bilaterally, 17:35 ENT: External ear(s): are unremarkable, Nose: is normal, Mouth: Lips: moist, Oral mucosa: moist, Posterior pharynx: Airway: no evidence of obstruction, patent, 17:35 Chest/axilla: Inspection: normal, 17:35 Cardiovascular: Rate: normal, Rhythm: regular, 17:35 Respiratory: the patient does not display signs of respiratory distress, Respirations: normal, no use of accessory muscles, no retractions, labored breathing, is not present, Breath sounds: are clear throughout, no decreased breath sounds, no stridor, no wheezing, 17:35 Abdomen/GI: Inspection: abdomen appears normal, Bowel sounds: active, all quadrants, Palpation: soft, in all quadrants, mild abdominal tenderness, in the suprapubic area, right lower quadrant and left lower quadrant, rebound tenderness, is not appreciated, involuntary guarding, is not appreciated, 17:35 Back: pain, is absent, ROM is normal, 17:35 Neuro: Orientation: to person, place \T\ time. Mentation: is normal, Motor: moves all fours, strength is normal, Sensation: is normal, Vital Signs: 17:04 BP 119 / 83; Pulse 73; Resp 16; Temp 98.3(O); Pulse Ox 99% on R/A; Weight 101.3 kg (M); hb Height 6 ft. 1 in. ; Pain 8/10; 17:43 BP 123 / 88; Pulse 83; Resp 15; Pulse Ox 97% ; bp 18:15 BP 102 / 75; Pulse 76; Resp 16; Pulse Ox 100% ; db 19:37 BP 102 / 91; Pulse 77; Resp 16; Pulse Ox 100% on R/A; cc6 17:04 Body Mass Index 29.46 (101.30 kg, 185.42 cm) hb 17:04 Pain Scale: Adult hb MDM: 17:02 Medical Screening Exam initiated cp 19:28 Data reviewed: vital signs, nurses notes, lab test result(s), radiologic studies, cp ultrasound, and as a result, I will discharge patient. 19:28 Differential diagnosis: appendicitis, Ectopic , Ovarian Torsion, Pelvic cp Inflammatory Disease, Ureterolithiasis, urinary tract infection, . Counseling: I had a detailed discussion with the patient and/or guardian regarding the historical points, exam findings, and any diagnostic results supporting the discharge/admit diagnosis, lab results, radiology results, to return to the emergency department if symptoms worsen or persist or if there are any questions or concerns that arise at home. Response to treatment: the patient's symptoms have mildly improved after treatment, and as a result, I will discharge patient. Special discussion: Based on the patient's Hx, exam, and Dx evaluation, there is no indication for emergent surgery or inpatient Tx. It is understood by the patient/guardian that if the Sx's persist or worsen they need to return immediately for re-evaluation. 03/24 17:16 Order name: CBC with Diff; Complete Time: 18:00 03/24 19:25 Interpretation: Normal except. 03/24 17:16 Order name: CMP; Complete Time: 19:23 03/24 19:23 Interpretation: Normal except: CL 113; GFR 85; AST 14; ALB 3.2; GLOB 3.6; A/G 0.9. 03/24 17:16 Order name: Lipase; Complete Time: 19:23 03/24 17:16 Order name: Test, Urine; Complete Time: 18:00 03/24 17:16 Order name: UA Rfx Eben Cult if indicated; Complete Time: 18:00 03/24 18:00 Interpretation: Normal except: UCLA Turbid; UUROB 1+; UESTR 250; SPERM Present. 03/24 18:01 Order name: US Pelvis Complete; Complete Time: 19:23 03/24 19:23 Interpretation: Report reviewed. 03/24 17:16 Order name: IV Saline Lock; Complete Time: 17:40 03/24 17:16 Order name: Labs collected and sent; Complete Time: 17:40 cp Administered Medications: 18:11 Drug: Acetaminophen PO 1000 mg PO once Route: PO; db 19:38 Follow up: Response: No adverse reaction; Pain is decreased cc6 Disposition Summary: 03/24/25 19:28 Discharge Ordered Notes: Location: Home cp Problem: new cp Symptoms: have improved cp Condition: Stable cp Diagnosis - Lower abdominal pain, unspecified cp Followup: cp - With: Private Physician - When: 2 - 3 days - Reason: Worsening of condition Discharge Instructions: - Discharge Summary Sheet cp - Abdominal Pain, Adult cp Forms: - Medication Reconciliation Form cp - Antibiotic Education cp - Prescription Opioid Use cp - Patient Portal Instructions cp - Leadership Thank You Letter cp Prescriptions: - Ibuprofen 800 mg Oral Tablet - take 1 tablet ORAL route every 8 hours As needed take with food; 30 tablet; cp Refills: 0, Product Selection Permitted Signatures: Dispatcher [employer] EDOR David Jovel PA-C PA-C cp Baxter, Heather, RN RN An Newberry RN RN db Nicky Crook RN cc6 Corrections: (The following items were deleted from the chart) 17:17 17:17 CBC+H.LAB.BRZ ordered. EDMS EDMS 17:17 17:17 COMPREHENSIVE METABOLIC PANEL+C.LAB.BRZ ordered. EDMS EDMS 17:17 17:17 LIPASE+C.LAB.BRZ ordered. EDMS EDMS 17: 17:17 Test, Urine+UC.LAB.BRZ ordered. EDMS EDMS 17:17 17:17 UA Rfx Eben Cult if indicated+U.LAB.BRZ ordered. EDMS EDMS 03/25 18:58 03/24 17:20 Onset: The symptoms/episode began/occurred this morning, cp cp
[2025-03-24 20:04] VITALS: TEMP 98.3
[2025-03-24 20:09] VITALS: O2SAT 100
[2025-03-24 20:10] VITALS: BP 102/91
== END 2025-03-24 19:38 | disposition home or self-care (01) ==
LOC: ER 16:49
DX: R10.32 Left lower quadrant pain (principal); R10.31 Right lower quadrant pain
CPT/HCPCS: 36415; 76856; 80053; 81001; 81025; 83690; 85025; 99283